=== PATIENT | female | born 1990 | race Caucasian/White ===

== ENCOUNTER 2021-02-16 14:12 | Outpatient (REF) | payer OTHER, SELFPAY | END 2021-02-16 14:13 | disposition home or self-care (01) | LOC: HO.LAB 14:12 | PROVIDERS: Visit Provider Internal Medicine | DX: Z20.822 Contact with and (suspected) exposure to COVID-19 (principal) | CPT/HCPCS: C9803; U0003; U0005 ==

== ENCOUNTER 2025-04-29 21:38 | Inpatient (IN) | payer OTHER, SELFPAY ==
--- OUTSIDE RECORDS SUMMARY | 2025-04-28 15:38 | XMS_ITS | Encounter Summary ---
Author Organization [facility] Address [address] [place] [address] Care Team Providers Care Trade Analyst Name Role Phone Sae Hawley MD Primary Care Provider Reason for Visit * Reason Comments Palpitations Encounter Details Date Type Department Care Team ([facility] st Contact Info) Description 04/28/2025 3:38 PM EDT - 04/29/2025 3:23 AM EDT Emergency [facility] Emergency [address] [place] [address] Terrence Saba MD [address] [facility] [address] [place], [place] [id number] Tremaine Esteban MD [address] [place] [id number] Palpitations (Primary Dx); Chest pain, unspecified type; Pain of upper abdomen Discharge Disposition: Home or Self Care Social History Tobacco Use Types Packs/Day Years Used Date Smoking Tobacco: Former Cigarettes Smokeless Tobacco: Former Alcohol Use Standard Drinks/Week Comments Never 0 (1 standard drink = 0.6 oz pur e alcohol) Comments Unknown Sex and Gender Information Value Date Recorded Sex Assigned at Not on file Legal Sex Female 2:01 AM EST Gender Identity Not on file Sexual Orientation Not on file documented as of this encounter Last Filed Vital Signs Vital Sign Reading Time Taken Comments Blood Pressure 130/67 04/29/2025 1:55 AM EDT Pulse 77 04/29/2025 1:55 AM EDT Temperature 36.8 C (98.2 F) 04/29/2025 1:55 AM EDT Respiratory Rate 18 04/29/2025 1:55 AM EDT Oxygen Saturation 99% 04/29/2025 1:55 AM EDT Inhaled Oxygen Concentration - - Weight 99.8 kg (220 lb) 04/28/2025 1:18 PM EDT Height 157.5 cm (5' 2 ) 04/28/2025 1:18 PM EDT Body Mass Index 40.24 04/28/2025 1:18 PM EDT documented in this encounter Functional Status * Calculated C-SSRS Risk Score (Lifetime/Recent) Answer Date of Assessment Author No Risk Indicated 04/28/2025 1:17 PM EDT Corina Claudio RN * [place] Suicide Severity Rating Scale (Screener/Recent Self-Report) Question Answer Date of Assessment Author 1. Wish to be (Past 1 Month) No 025 1:17 PM EDT Yumiko Claudio RN 2. Non-Specific Active Suici kiarra Thoughts (Past 1 Month) No 04/28/2025 1:17 PM EDT Bryanna Claudio RN 6. Suicidal Behavior (Lifetime) No 1:17 PM EDT Yumiko Claudio RN documented as of this encounter Discharge Instructions * Discharge Instructions* Tremaine Esteban MD - 04/29/2025 2:48 AM EDT 1. You were seen and evaluated in the emergency department today for concern about palpitations, difficulty breathing, chest pain, and abdominal pain. 2. In the emergency department, your evaluation included vital signs, physical exam, EKG, chest x-ray, abdominal CT scan and an ultrasound of your abdomen. 3. Fortunately, there is no evidence of an immediately dangerous life- threatening cause for your symptoms. 4. Specifically, no sign of infection, no sign of any surgical emergency. No evidence of heart attack or heart inflammation. No apparent blood clot/pulmonary embolism. Your chest x-ray does not suggest pneumonia or other infection that needs antibiotics. 5. Many causes of pain can be difficult to fully identify in the emergency department. For this reason it is important to continue to carefully watch and monitor your symptoms at home. 6. It is important to contact your primary care provider and arrange for outpatient follow-up and reevaluation. 7. We are always here in the emergency department to help. Please return at anytime for any new, different, dangerous, life-threatening, symptoms or conditions. Thank you. * Attachments The following attachments cannot be sent through Care Everywhere. * Abdominal Pain (Samoan) * Chest Pain (Samoan) documented in this encounter Medications at Time of Discharge nystatin (MYCOSTATIN) 100,000 unit/gram powder Apply topically 2 (two) times a day. 15 g 02/03/2025 6 no.37/iron/folic acid (PRENATA ORAL) Take by mouth. documented as of this encounter Discharge Disposition Disposition Code Departure Means Destination Comment s Home or Self Care Discharged with balanced and steady gait. Pt advised to return with worsening sx. documented in this encounter Progress Notes * Yumiko Claudio RN - 04/28/2025 1:19 PM EDT C/o palpitations and sob- onset Friday night. Reports abd pain- Feels her organs are swollen . Iwas very bloated- what ever it was there was a lot of gas. States she just had a miscarriage Friday- states she was in her first trimester- reports she still has vaginal bleeding but on and off. * Tremaine Esteban MD - 04/28/2025 1:00 PM EDT Emergency department progress note: Signout received that evening change of shift. Please see emergency department note from my emergency department colleague with presenting details and information. This is a 34-year-old female, brought in by EMS, for what is reported to me is predominantly palpitations, chest tightness, difficulty breathing. Patient had additional abdominal and pelvic complaints including intermittent abdominal pain, some irregular vaginal bleeding and concern for . At time of my evaluation, the patient had had a transvaginal pelvic ultrasound as well as a CT scanof the abdomen and pelvis. The ultrasound revealed a largely normal pelvic ultrasound, with no evidence of ovarian torsion. Nofree fluid was noted within the pelvis. Normal color Doppler both arterial and venous flow to both ovaries. CT scan of the abdomen and pelvis revealed a small hiatal hernia. Fatty liver. Gallbladder spleen pancreas adrenals and kidneys were all unremarkable. No bowel obstruction. No pneumoperitoneum, no pneumatosis. There is a fat-containing umbilical hernia. There is reports of some mild thickening of the urinary bladder. Patient has no urinary symptoms, no urgency, no frequency. No dysuria. I reviewed with the patient the data collected. At this time there does not appear to be a dangerous abdominal pelvic issue, no evidence of a surgical emergency, patient is hCG negative. The urine sample appears to be contaminated as evidenced by a large amount of squamous epithelial cells. However, there is no bacteriuria. Low index of suspicion for an acute cystitis based on urinalysis and absence of any urinary symptoms. At time of my evaluation, the patient's predominant concern is more related to Chest discomfort and shortness of breath. Patient states the symptoms have been constant now for 4 days since Friday. Patient denies any hormone therapy. She denies any history of DVT or PE. She has no leg swelling, no calf tenderness. Patient is PERC negative. EKG is sinus rhythm at 58 bpm. Narrow complex QRS at 84 ms. Normal QTc 435 ms. No ectopy. No dysrhythmia. No A-fib. No A-flutter. No ST elevation noted. Labs today show a negative hCG, negative test. CBC shows a very mild leukocytosis of 11.7. H&H are otherwise normal and reassuring. Comprehensive metabolic panel is unremarkable. Mild hypokalemia with a potassium of 3.1. BNP is normal, troponin is normal, TSH is normal, magnesium is normal. Urinalysis shows greater then 100 squamous epithelial cells consistent with a contaminated sample. There are some elevated white blood cells, red blood cells, but no bacteria. Nitrite negative. 1. You were seen and evaluated in the emergency department today for concern about palpitations, difficulty breathing, chest pain, and abdominal pain. 2. In the emergency department, your evaluation included vital signs, physical exam, EKG, chest x-ray, abdominal CT scan and an ultrasound of your abdomen. 3. Fortunately, there is no evidence of an immediately dangerous life- threatening cause for your symptoms. 4. Specifically, no sign of infection, no sign of any surgical emergency. No evidence of heart attack or heart inflammation. No apparent blood clot/pulmonary embolism. Your chest x-ray does not suggest pneumonia or other infection that needs antibiotics. 5. Many causes of pain can be difficult to fully identify in the emergency department. For this reason it is important to continue to carefully watch and monitor your symptoms at home. 6. It is important to contact your primary care provider and arrange for outpatient follow-up and reevaluation. 7. We are always here in the emergency department to help. Please return at anytime for any new, different, dangerous, life-threatening, symptoms or conditions. Thank you. Tremaine Esteban MD 04/29/25 0028 Tremaine Esteban MD 04/29/25 0703 documented in this encounter Plan of Treatment Not on file documented as of this encounter Procedures Procedure Name Priority Date/Time Associated Diagnosis Comments XR CHEST 2 VIEWS STAT 04/29/2025 1:[address] ABDOMEN PELVIS W CONTRAST STAT 04/28/2025 10:41 PM EDT US PELVIS NON OB COMPLETE W TRANSVAGINAL STAT 04/28/2025 5:59 PM EDT POC , URINE DIAGNOSTIC STAT 04/28/2025 5:28 PM EDT URINALYSIS WITH REFLEX MICROSCOPIC STAT 04/28/2025 5:12 PM EDT URINALYSIS WITH REFLEX MICROSCOPIC STAT 04/28/2025 5:12 PM EDT [place] URINE CULTURE TUBE Routine 04/28/2025 5:07 PM EDT EXTRA TUBES Routine 04/28/2025 5:07 PM EDT TROPONIN I HIGH SENSITIVITY STAT 04/28/2025 4:43 PM EDT THYROID STIMULATING HORMONE WITH REFLEX TO FREE T4 AND FREE T3 STAT 04/28/2025 4:43 PM EDT CBC WITH AUTO DIFFERENTIAL STAT 04/28/2025 4:43 PM EDT CBC AND DIFFERENTIAL STAT 04/28/2025 4:43 PM EDT HCG, SERUM, QUALITATIVE STAT 04/28/2025 4:43 PM EDT B-TYPE NATRIURETIC PEPTIDE STAT 04/28/2025 4:43 PM EDT MAGNESIUM STAT 04/28/2025 4:43 PM EDT COMPREHENSIVE METABOLIC PANEL STAT 04/28/2025 4:43 PM EDT ECG 12-LEAD STAT 04/28/2025 1:29 PM EDT documented in this encounter Results * XR Chest 2 Views (04/29/2025 1:58 AM EDT) Anatomical Region Laterality Modality Body Radiographic Betty ging 04/29/2025 8:07 AM EDT Impressions 04/29/2025 8:07 AM EDT No acute findings. -------- FINAL REPORT -------- Dictated By: Spencer Ricardo Dictated Date: 04/29/2025 08:07 ET Assigned Physician: Spencer Ricardo Reviewed and Electronically Signed By: Spencer Ricardo Signed Date: 04/29/2025 08:07 ET Workstation ID: [id number] Transcribed By: Self Edit Transcribed Date: 04/29/2025 08:07 ET Narrative 04/29/2025 8:07 AM EDT PROCEDURE: PA and lateral radiographs of the chest. HISTORY: pain. COMPARISON: 05/12/2024. FINDINGS: Small endplate osteophytes and spine. Lungs, pleural spaces, pulmonary vasculature, and cardiomediastinal contours are normal. Procedure Note Spencer Ricardo MD - 04/29/2025 PROCEDURE: PA and lateral radiographs of the chest. HISTORY: pain. COMPARISON: 05/12/2024. FINDINGS: Small endplate osteophytes and spine. Lungs, pleural spaces, pulmonaryvasculature, and cardiomediastinal contours are normal. IMPRESSION: No acute findings. -------- FINAL REPORT -------- Dictated By: Spencer Ricardo Dictated Date: 04/29/2025 08:07 ET Assigned Physician: Spencer Ricardo Reviewed and Electronically Signed By: Spencer Ricardo Signed Date: 04/29/2025 08:07 ET Workstation ID: [id number] Transcribed By: Self Edit Transcribed Date: 04/29/2025 08:07 ET us Tremaine Esteban MD IMG XR PROCEDURES Final Result * CT Abdomen Pelvis w Contrast (04/28/2025 10:41 PM EDT) Anatomical Region Laterality Modality Body Computed Tomogra phy 04/28/2025 11:0 4 PM EDT Impressions 04/28/2025 11:04 PM EDT 1. Small hiatal hernia. 2. Fatty infiltration of the liver. 3. Fat containing umbilical hernia. 4. Mild thickening of the urinary bladder wall may be related to cystitis. Correlation with urinalysis is suggested. 5. Bilateral nonspecific subcentimeter inguinal lymph nodes. This document has been electronically signed by: Kris Guevara MD on 04/28/2025 23:04:05 Narrative 04/28/2025 11:04 PM EDT INDICATION: Abdominal pain, acute, no prior medical history CT abdomen and pelvis with contrast Comparison: None provided Findings: Small hiatal hernia. Fatty infiltration of the liver. The gallbladder, spleen, pancreas, adrenals, and kidneys are unremarkable. No bowel obstruction, pneumoperitoneum, or pneumatosis. Fat containing umbilical hernia. Mild thickening of the urinary bladder wall may be related to cystitis. Correlation with urinalysis is suggested. No evidence for acute appendicitis. Bilateral nonspecific subcentimeter inguinal lymph nodes. No acute fracture. Procedure Note Kris Guevara MD - 04/28/2025 INDICATION: Abdominal pain, acute, no prior medical history CT abdomen and pelvis with contrast Comparison: None provided Findings: Small hiatal hernia. Fatty infiltration of the liver. The gallbladder, spleen, pancreas, adrenals, and kidneys are unremarkable. No bowel obstruction, pneumoperitoneum, or pneumatosis. Fat containing umbilical hernia. Mild thickening of the urinary bladder wall may be related to cystitis. Correlation with urinalysis is suggested. No evidence for acute appendicitis. Bilateral nonspecific subcentimeter inguinal lymph nodes. No acute fracture. IMPRESSION: 1. Small hiatal hernia. 2. Fatty infiltration of the liver. 3. Fat containing umbilical hernia. 4. Mild thickening of the urinary bladder wall may be related tocystitis. Correlation with urinalysis is suggested. 5. Bilateral nonspecific subcentimeter inguinal lymph nodes. This document has been electronically signed by: Kris Guevara MD on 04/28/2025 23:04:05 Terrence Saba MD IMG CT PROCEDURES Final Result * US Pelvis Non OB Complete w Transvaginal (04/28/2025 5:59 PM EDT) Anatomical Region Laterality Modality Body, Pelvis Ultrasound 04/28/2025 6:32 PM EDT Impressions 04/28/2025 6:32 PM EDT 1. Normal pelvic ultrasound with Doppler. No evidence of ovarian torsion. This document has been electronically signed by: Janny Walter MD on 04/28/2025 18:32:33 Narrative 04/28/2025 6:32 PM EDT INDICATION: vaginal bleeding US pelvis transabdominal and transvaginal with Doppler Comparison: US/SR - US PEL NON OB COMPLETE W TRANSVAGINAL - 03/22/25 12:02 EDT Findings: Transabdominal scanning performed for overall anatomy. Transvaginal scanning performed for additional detail. Uterus is 7.1 cm length. Normal myometrium. Endometrium 7.0 mm thickness. Right ovary 2.8 x 1.3 x 2.7 cm. Left ovary 3.3 x 1.9 x 2.2 cm. Normal color Doppler with arterial/venous spectral tracing of both ovaries. No free fluid. Procedure Note Janny Walter MD - 04/28/2025 INDICATION: vaginal bleeding US pelvis transabdominal and transvaginal with Doppler Comparison: US/SR - US PEL NON OB COMPLETE W TRANSVAGINAL - 03/22/2512:02 EDT Findings: Transabdominal scanning performed for overall anatomy. Transvaginal scanning performed for additional detail. Uterus is 7.1 cm length. Normal myometrium. Endometrium 7.0 mm thickness. Right ovary 2.8 x 1.3 x 2.7 cm. Left ovary 3.3 x 1.9 x 2.2 cm. Normal color Doppler with arterial/venous spectral tracing of both ovaries. No free fluid. IMPRESSION: 1. Normal pelvic ultrasound with Doppler. No evidence of ovariantorsion. This document has been electronically signed by: Janny Walter MD on 04/28/2025 18:32:33 us Terrence Saba MD IMG US PROCEDURES Final Result * POC , urine manually resulted (04/28/2025 5:28 PM EDT) HCG, Ur POC Negative Negative Urine Urine specimen obtained by clean catch procedure / Unknown 04/28/2025 5:28 PM EDT us Terrence Saba MD POINT OF CARE TEST ENTER/EDIT OR DERABLES Final Result * (ABNORMAL) Urinalysis with reflex microscopic (04/28/2025 5:12 PM EDT) Specific [place] Urine 1.028 1.003 - 1.030 LAB URINALYSIS - AUTOMATED METHOD 04/28/2025 6:32 PM [facility] pH, Urine 6.5 5.0 - 8.0 pH LAB URINALYSIS - AUTOMATED METHOD 04/28/2025 6:32 PM [facility] Leukocytes, Urine Moderate(A) Negative LAB URINALYSIS - AUTOMATED METHOD 04/28/2025 6:32 PM [facility] Nitrite, Urine Negative Negative LAB URINALYSIS - AUTOMATED METHOD 04/28/2025 6:32 PM [facility] Protein, Urine 100(A) <=Trace mg/dL LAB URINALYSIS - AUTOMATED METHOD 04/28/2025 6:32 PM [facility] Glucose, Urine Negative Negative mg/dL LAB URINALYSIS - AUTOMATED METHOD 04/28/2025 6:32 PM [facility] Ketones, Urine >=80(A) Negative mg/dL LAB URINALYSIS - AUTOMATED METHOD 04/28/2025 6:32 PM [facility] Urobilinogen , Urine 1.0 0.2 - 1.0 mg/dL LAB URINALYSIS - AUTOMATED METHOD 04/28/2025 6:32 PM [facility] Bilirubin, Urine Negative Negative LAB URINALYSIS - AUTOMATED METHOD 04/28/2025 6:32 PM [facility] Blood, Urine Moderate(A) Negative LAB URINALYSIS - AUTOMATED METHOD 04/28/2025 6:32 PM [facility] RBC, Urine 20.8(H) 0 - 4 /HPF LAB URINALYSIS - AUTOMATED METHOD 04/28/2025 6:32 PM [facility] WBC, Urine 29.2(H) 0 - 4 /HPF LAB URINALYSIS - AUTOMATED METHOD 04/28/2025 6:32 PM EDT [facility] Squamous Epithelial, Urine >100(H) 0 - 60 /LPF LAB URINALYSIS - AUTOMATED METHOD 04/28/2025 6:32 PM EDT [facility] Non-Squamous Epithelial, Urine Rare Transitional epithelial cells. /LPF LAB URINALYSIS - AUTOMATED METHOD 04/28/2025 6:32 PM EDT [facility] Bacteria, Urine Negative Negative /HPF LAB URINALYSIS - AUTOMATED METHOD 04/28/2025 6:32 PM EDT [facility] Hyaline Casts, Urine 2.0 0 - 3 /LPF LAB URINALYSIS - AUTOMATED METHOD 04/28/2025 6:32 PM EDT [facility] Urine Urine specimen obtained by clean catch procedure / Unknown Non-blood Collection / Unknown 04/28/2025 5:12 PM EDT 04/28/2025 5:28 PM EDT us Terrence Saba MD LAB URINE ORDERABLES Final Resul t Performing Organization Address City/[facility]/ZIP Co de Phone Number [facility] [address] [place] [address], [place] [phone] * [place] urine culture tube (04/28/2025 5:07 PM EDT) Extra Tube Hold for add-ons. 04/28/2025 7:01 PM EDT [facility] Comment:Auto resulted. Urine Urine specimen obtained by clean catch procedure / Unknown 04/28/2025 5:07 PM EDT 04/28/2025 5:30 PM EDT us Terrence Saba MD LAB URINE ORDERABLES Final Resul t Performing Organization Address City/[facility]/ZIP Co de Phone Number [facility] [address] [place] [address], [place] [phone] * (ABNORMAL) CBC auto differential (04/28/2025 4:43 PM EDT) [facility] WBC 11.7(H) 4.8 - 10.8 K/mcL LAB HEMETOLOGY METHOD 04/28/2025 5:43 PM EDT [facility] RBC 4.90(H) 3.80 - 4.80 M/mcL LAB HEMETOLOGY METHOD 04/28/2025 5:43 PM EDT [facility] Hemoglobin 14.9 11.5 - 16.0 g/dL LAB HEMETOLOGY METHOD 04/28/2025 5:43 PM EDT [facility] Hematocrit 44.6 35.0 - 47.0 % LAB HEMETOLOGY [facility]28[facility]25 5[facility] MCV 91.6 79.0 - 98.0 FL LAB HEMETOLOGY METHOD 04/28/2025 5:43 PM EDT [facility] MCH 30.6 27.0 - 32.0 pcg LAB HEMETOLOGY METHOD 04/28/2025 5:43 PM EDT [facility] MCHC 33.4 32.0 - 37.0 g/dL LAB HEMETOLOGY METHOD [facility]/28[facility]2025 5[facility] RDW 12.1 11.0 - 15.0 % LAB HEMETOLOGY METHOD 04/28/2025 5:43 PM EDT [facility] Platelets 314 130 - 400 K/mcL LAB HEMETOLOGY METHOD 04/28[facility]2025 5:[facility] MPV 11.0 7.0 - 11.0 FL LAB HEMETOLOGY METHOD 04/28/2025 5:43 PM EDT [facility] NRBC 0.0 <1.0 % LAB HEMETOLOGY METHOD 04/28/2025 5:43 PM EDT [facility] NRBC Absolute 0.00 <0.10 K/mcL LAB HEMETOLOGY METHOD 04/28/2025 5:43 PM EDT [facility] Neutrophils Relative 65.4 % LAB HEMETOLOGY METHOD 04/28/2025 5:43 PM [facility] Lymphocytes Relative 23.4 % LAB HEMETOLOGY METHOD [facility]/28[facility]2025 5:[facility] Monocytes Relative 10.6 % LAB HEMETOLOGY METHOD 04/28[facility]2025 5:43 [facility] Eosinophils Relative 0.1 % LAB HEMETOLOGY METHOD 04/28/2025 5:43 PM [facility] Basophils Relative 0.2 % LAB HEMETOLOGY METHOD 04/28/2025 5:43 PM [facility] Immature Granulocytes Relative 0.3 % LAB HEMETOLOGY METHOD 04/28/2025 5:43 PM [facility] Neutrophils Absolute 7.66(H) 1.50 - 7.00 K/mcL LAB HEMETOLOGY METHOD 04/28/2025 5:43 PM [facility] Lymphocytes Absolute 2.74 1.00 - 5.00 K/mcL LAB HEMETOLOGY METHOD 04/28/2025 5:43 PM [facility] Monocytes Absolute 1.24(H) 0.20 - 1.00 K/mcL LAB HEMETOLOGY METHOD 04/28/2025 5:43 PM [facility] Eosinophils Absolute 0.01 0.00 - 0.50 K/mcL LAB HEMETOLOGY METHOD 04/28/2025 5:43 PM [facility] Basophils Absolute 0.02 0.00 - 0.20 K/mcL LAB HEMETOLOGY METHOD 04/28/2025 5:43 PM [facility] Immature Granulocytes Absolute 0.04(H) 0.00 - 0.03 K/mcL LAB HEMETOLOGY METHOD 04/28/2025 5:43 PM EDT [facility] Blood Venous blood specimen / Unknown Venipuncture / Unknown 04/28/2025 4:43 PM EDT 04/28/2025 5:32 PM EDT us Terrence Saba MD LAB BLOOD ORDERABLES Final Resul t Performing Organization Address City/[facility]/ZIP Co de Phone Number [facility] [address] [place] [address], [place] [phone] * Magnesium (04/28/2025 4:43 PM EDT) Magnesium 2.1 1.9 - 2.6 mg/dL LAB CHEMISTRY METHOD 04/28/2025 6:16 PM EDT [facility] Blood Venous blood specimen / Unknown Venipuncture / Unknown 04/28/2025 4:43 PM EDT 04/28/2025 5:32 PM EDT us Terrence Saba MD LAB BLOOD ORDERABLES Final Resul t Performing Organization Address [facility]/ZIP Co de Phone Number [facility] [address] [place] [address], [place] [phone] * Thyroid stimulating hormone with reflex to free t4 and free t3 (TSH Reflex) (04/28/2025 4:43 PM EDT) TSH 2.09 0.40 - 4.00 mcIU/mL LAB CHEMISTRY METHOD 04/28/2025 7:01 PM EDT [facility] Blood Venous blood specimen / Unknown Venipuncture / Unknown 04/28/2025 4:43 PM EDT 04/28/2025 5:32 PM EDT us Terrence Saba MD LAB BLOOD ORDERABLES Final Resul t Performing Organization Address City/[facility]/ZIP Co de Phone Number [facility] [address] [place] [address], [place] [phone] * Troponin I High Sensitivity (04/28/2025 4:43 PM EDT) [facility] High Sensitivity Troponin I 6 <=54 ng/L LAB CHEMISTRY METHOD 04/28/2025 6:04 PM EDT [facility] Blood Venous blood specimen / Unknown Venipuncture / Unknown 04/28/2025 4:43 PM EDT 04/28/2025 5:32 PM EDT Narrative [facility] - 04/28/2025 6:04 PM EDT High levels of biotin in samples may falsely decrease hsTroponin values. Use caution when interpreting hsTroponin results in patients taking biotin who exhibit renal impairment (eGFR <60) or in patients taking more than 20 mg/day of biotin. us Terrence Saba MD LAB BLOOD ORDERABLES Final Resul t Performing Organization Address City/[facility]/ZIP Co de Phone Number [facility] [address] [place] [address], [place] [phone] * B-Type Natriuretic Peptide (BNP) (04/28/2025 4:43 PM EDT) [facility] BNP 14 <=100 pcg/mL LAB CHEMISTRY METHOD 04/28/2025 7:18 PM EDT [facility] Blood Venous blood specimen / Unknown Venipuncture / Unknown 04/28/2025 4:43 PM EDT 04/28/2025 5:32 PM EDT us Terrence Saba MD LAB BLOOD ORDERABLES Final Resul t [facility] [address] [place] [address], [place] [phone] * (ABNORMAL) Comprehensive Metabolic Panel (CMP) (04/28/2025 4:43 PM EDT) [facility] Sodium 133 133 - 145 mmol/L LAB CHEMISTRY METHOD 04/28/2025 6:16 PM [facility] Potassium 3.1(L) 3.5 - 5.5 mmol/L LAB CHEMISTRY METHOD 04/28/2025 6:16 PM [facility] Chloride 99 96 - 110 mmol/L LAB CHEMISTRY METHOD 04/28/2025 6:16 PM [facility] CO2 23 21 - 32 mmol/L LAB CHEMISTRY METHOD 04/28/2025 6:16 PM [facility] Anion Gap 11 3 - 11 LAB CHEMISTRY METHOD 04/28/2025 6:16 PM [facility] Glucose 84 70 - 100 mg/dL LAB CHEMISTRY METHOD 04/28/2025 6:16 PM [facility] BUN 11 5 - 25 mg/dL LAB CHEMISTRY METHOD 04/28/2025 6:16 PM [facility] Creatinine 0.76 0.50 - 1.10 mg/dL LAB CHEMISTRY METHOD 04/28/2025 6:16 PM [facility] eGFR 104 >=60 mL/min/1. 73m2 LAB CHEMISTRY METHOD 04/28/2025 6:16 PM [facility] Comment:Calculation based on the Chronic Kidney Disease Epidemiology Collaboration (CKD-EPI) equation refit without adjustment for race. BUN/Creatinine Ratio 14.5 LAB CHEMISTRY METHOD 04/28/2025 6:16 PM [facility] Calcium 9.7 8.5 - 10.5 mg/dL LAB CHEMISTRY METHOD 04/28/2025 6:16 PM [facility] AST (SGOT) 21 10 - 42 unit/L LAB CHEMISTRY METHOD 04/28/2025 6:16 PM [facility] ALT (SGPT) 28 10 - 60 unit/L LAB CHEMISTRY METHOD 04/28/2025 6:16 PM [facility] Alkaline Phosphatase 81 42 - 121 unit/L LAB CHEMISTRY METHOD 04/28/2025 6:16 PM EDT [facility] Total Protein 8.6(H) 6.0 - 8.0 g/dL LAB CHEMISTRY METHOD 04/28/2025 6:16 PM EDT [facility] Albumin 4.8 3.2 - 5.0 g/dL LAB CHEMISTRY METHOD 04/28/2025 6:16 PM EDT [facility] Total Bilirubin 0.8 0.0 - 1.4 mg/dL LAB CHEMISTRY METHOD 04/28/2025 6:16 PM EDT [facility] Blood Venous blood specimen / Unknown Venipuncture / Unknown 04/28/2025 4:43 PM EDT 04/28/2025 5:32 PM EDT us Terrence Saba MD LAB BLOOD ORDERABLES Final Resul t [facility] [address] [place] [address], [place] [phone] * hCG Qualitative (04/28/2025 4:43 PM EDT) [facility] hCG Qual Negative Negative 04/28/2025 6:16 PM EDT [facility] Blood Venous blood specimen / Unknown Venipuncture / Unknown 04/28/2025 4:43 PM EDT 04/28/2025 5:32 PM EDT us Terrence Saba MD LAB BLOOD ORDERABLES Final Resul t [facility] [address] [place] [address], [place] [phone] * ECG 12 lead (04/28/2025 1:29 PM EDT) Ventricular Rate ECG 58 BPM GEMUSE Atrial Rate 58 BPM GEMUSE P-R Interval 156 ms GEMUSE QRS Duration 84 ms GEMUSE Q-T Interval 444 ms GEMUSE QTc 435 ms GEMUSE P Wave [place] 19 degrees GEMUSE R [place] 14 degrees GEMUSE T [place] 19 degrees GEMUSE ECG Interpretation Sinus bradycardia Moderate voltage criteria for LVH, may be normal variant ( R in aVL , Sokolow-Vang ) Borderline ECG When compared with ECG of 12-MAY-2024 00:11, No significant change was found Confirmed by TOM MILIAN ([id number]) on 04/28/2025 5:49:23 PM GEMUSE 04/28/2025 1:29 PM EDT 04/28/2025 5:49 PM EDT us Terrence Saba MD ECG ORDERABLES Final Result GEMUSE documented in this encounter Visit Diagnoses Diagnosis Palpitations- Primary Chest pain, unspecified type Pain of upper abdomen documented in this encounter Administered Medications Inactive Administered Medications - up to 3 most recent administrations Medication Order MAR Action Action Date Dose Rate Site acetaminophen (TYLENOL) tablet 650 mg 650 mg, oral, Once, On Fri04/28/25 at 1605, For 1 dose Given 04/28/2025 4:14 PM EDT 650 mg ibuprofen (ADVIL,MOTRIN) tablet 800 mg 800 mg, oral, Once, On Fri04/29/25 at 0021, For 1 dose, Administer with food or milk to decrease GI upset Given 04/29/2025 12:38 AM EDT 800 mg iopamidoL (ISOVUE-370) 370 mg iodine /mL (76 %) injection 90 mL 90 mL, intravenous, Once in imaging, Starting on Shayna 04/28/25 at 2235, For 1 dose Given 04/28/2025 10:37 PM EDT 90 mL ipratropium-albuteroL (DUONEB) 0.5-2.5 mg/3 mL nebulizer solution 3 mL 3 mL, nebulization, Once, On Fri04/29/25 at 0022, For 1 dose Given 04/29/2025 12:38 AM EDT 3 mL oxyCODONE-acetaminophen (PERCOCET) 5-325 mg per tablet 1 tablet 1 tablet, oral, Once, On Fri04/29/25 at 0021, For 1 dose Given 04/29/2025 12:39 AM EDT 1 tablet sodium chloride 0.9 % flush 10 mL 10 mL, intravenous, Once, On Shayna 04/28/25 at 2236, For 1 dose Given 04/28/2025 10:37 PM EDT 10 mL documented in this encounter Active and Recently Administered Medications Times are shown in EDT. Scheduled Medication Order 04/27/2025 04/28/2025 04/29/2025 acetaminophen (TYLENOL) tablet 650 mg (COMPLETED) 650 mg, oral, Once, On Fri04/28/25 at 1605, For 1 dose 1614 (Given - Provider: Lala Yañez RN) ibuprofen (ADVIL,MOTRIN) tablet 800 mg (COMPLETED) 800 mg, oral, Once, On Fri04/29/25 at 0021, For 1 dose, Administer with food or milk to decrease GI upset 0038 (Given - Provid er: Ade Santiago RN) iopamidoL (ISOVUE-370) 370 mg iodine /mL (76 %) injection 90 mL (COMPLETED) 90 mL, intravenous, Once in imaging, Starting on Shayna 04/28/25 at 2235, For 1 dose 2237 (Given - Provider: Rosmery Nolen) ipratropium-albuteroL (DUONEB) 0.5-2.5 mg/3 mL nebulizer solution 3 mL (COMPLETED) 3 mL, nebulization, Once, On Fri04/29/25 at 0022, For 1 dose 0038 (Given - Provid er: Ade Santiago RN) oxyCODONE-acetaminophen (PERCOCET) 5-325 mg per tablet 1 tablet (COMPLETED) 1 tablet, oral, Once, On Fri04/29/25 at 0021, For 1 dose 0039 (Given - Provid er: Ade Santiago RN) sodium chloride 0.9 % flush 10 mL (COMPLETED) 10 mL, intravenous, Once, On Shayna 04/28/25 at 2236, For 1 dose 2237 (Given - Provider: Rosmery Nolen) documented in this encounter Care Teams Trade Analyst Relationship Specialty Start Date End Date Sae Hawley MD [address] [place] [id number] PCP - General 03/17/23 documented as of this encounter
--- OUTSIDE RECORDS SUMMARY | 2025-04-29 09:51 | XMS_ITS | Encounter Summary ---
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 04/29/2025 7:25 PM EDT [facility] Anion Gap 8 3 - 11 LAB CHEMISTRY METHOD 04/29/2025 7:25 PM [facility] Glucose 103(H) 70 - 100 mg/dL LAB CHEMISTRY METHOD 04/29/2025 7:25 PM [facility] BUN 10 5 - 25 mg/dL LAB CHEMISTRY METHOD 04/29/2025 7:25 PM [facility] Creatinine 0.68 0.50 - 1.10 mg/dL LAB CHEMISTRY METHOD 04/29/2025 7:25 PM [facility] eGFR 116 >=60 mL/min/1. 73m2 LAB CHEMISTRY METHOD 04/29/2025 7:25 PM [facility] Comment:Calculation based on the Chronic Kidney Disease Epidemiology Collaboration (CKD-EPI) equation refit without adjustment for race. BUN/Creatinine Ratio 14.7 LAB CHEMISTRY METHOD 04/29/2025 7:25 PM [facility] Calcium 9.6 8.5 - 10.5 mg/dL LAB CHEMISTRY METHOD 04/29/2025 7:25 PM [facility] AST (SGOT) 24 10 - 42 unit/L LAB CHEMISTRY METHOD 04/29/2025 7:25 PM [facility] ALT (SGPT) 26 10 - 60 unit/L LAB CHEMISTRY METHOD 04/29/2025 7:25 PM [facility] Alkaline Phosphatase 76 42 - 121 unit/L LAB CHEMISTRY METHOD 04/29/2025 7:25 PM [facility] Total Protein 8.0 6.0 - 8.0 g/dL LAB CHEMISTRY METHOD 04/29/2025 7:25 PM [facility] Albumin 4.5 3.2 - 5.0 g/dL LAB CHEMISTRY METHOD 04/29/2025 7:25 PM [facility] Total Bilirubin 0.7 0.0 - 1.4 mg/dL LAB CHEMISTRY METHOD 04/29/2025 7:25 PM [facility] Blood Venous blood specimen / Unknown Venipuncture / Unknown 04/29/2025 6:42 PM EDT 04/29/2025 7:00 PM EDT Kaleb Mason MD LAB BLOOD ORDERABLES Final Resul t Performing Organization Address [facility] de Phone Number [facility] [address] [place] [address], [place] [phone] * ECG 12 lead (04/29/2025 10:36 AM EDT) Ventricular Rate ECG 62 BPM GEMUSE Atrial Rate 62 BPM GEMUSE P-R Interval 134 ms GEMUSE QRS Duration 84 ms GEMUSE Q-T Interval 426 ms GEMUSE QTc 432 ms GEMUSE P Wave [place] 42 degrees GEMUSE R [place] 51 degrees GEMUSE T [place] 47 degrees GEMUSE ECG Interpretation Normal sinus rhythm Normal ECG When compared with ECG of 28-APR-2025 13:29, No significant change was found Confirmed by Rohini BACON JAMES ([id number]) on 04/29/2025 6:33:24 PM GEMUSE 04/29/2025 10:3 6 AM EDT 04/29/2025 6:33 PM EDT Kaleb Mason MD ECG ORDERABLES Final Result Performing Organization Address [facility] de Phone Number GEMUSE * (ABNORMAL) CBC auto differential (04/29/2025 10:32 AM EDT) Pathologist [facility] WBC 10.8 4.8 - 10.8 K/[facility] LAB HEMETOLOGY METHOD 04/29/2025 10:48 AM EDT [facility] RBC 5.20(H) 3.80 - 4.80 M/[facility] LAB HEMETOLOGY METHOD 04/29/2025 10:48 AM EDT [facility] Hemoglobin 16.0 11.5 - 16.0 g/dL LAB HEMETOLOGY METHOD 04/29/2025 10:48 AM [facility] Hematocrit 45.7 35.0 - 47.0 % LAB HEMETOLOGY METHOD 04/29/2025 10:48 AM [facility] MCV 88.1 79.0 - 98.0 FL LAB HEMETOLOGY METHOD 04/29/2025 10:48 AM [facility] MCH 30.8 27.0 - 32.0 pcg LAB HEMETOLOGY METHOD 04/29/2025 10:48 AM [facility] MCHC 35.0 32.0 - 37.0 g/dL LAB HEMETOLOGY METHOD 04/29/2025 10:48 AM [facility] RDW 12.1 11.0 - 15.0 % LAB HEMETOLOGY METHOD 04/29/2025 10:48 AM [facility] Platelets 352 130 - 400 K/mcL LAB HEMETOLOGY METHOD 04/29/2025 10:48 AM [facility] MPV 10.6 7.0 - 11.0 FL LAB HEMETOLOGY METHOD 04/29/2025 10:48 AM [facility] NRBC 0.0 <1.0 % LAB HEMETOLOGY METHOD 04/29/2025 10:48 AM [facility] NRBC Absolute 0.00 <0.10 K/mcL LAB HEMETOLOGY METHOD 04/29/2025 10:48 AM [facility] Neutrophils Relative 57.5 % LAB HEMETOLOGY METHOD 04/29/2025 10:48 AM [facility] Lymphocytes Relative 32.2 % LAB HEMETOLOGY METHOD 04/29/2025 10:48 AM [facility] Monocytes Relative 9.6 % LAB HEMETOLOGY METHOD 04/29/2025 10:48 AM [facility] Eosinophils Relative 0.2 % LAB HEMETOLOGY METHOD 04/29/2025 10:48 AM EDT [facility] Basophils Relative 0.2 % LAB HEMETOLOGY METHOD 04/29/2025 10:48 AM EDT [facility] Immature Granulocytes Relative 0.3 % LAB HEMETOLOGY METHOD 04/29/2025 10:48 AM EDT [facility] Neutrophils Absolute 6.22 1.50 - 7.00 K/mcL LAB HEMETOLOGY METHOD 04/29/2025 10:48 AM EDT [facility] Lymphocytes Absolute 3.48 1.00 - 5.00 K/mcL LAB HEMETOLOGY METHOD 04/29/2025 10:48 AM EDT [facility] Monocytes Absolute 1.04(H) 0.20 - 1.00 K/mcL LAB HEMETOLOGY METHOD 04/29/2025 10:48 AM EDT [facility] Eosinophils Absolute 0.02 0.00 - 0.50 K/mcL LAB HEMETOLOGY METHOD 04/29/2025 10:48 AM EDT [facility] Basophils Absolute 0.02 0.00 - 0.20 K/mcL LAB HEMETOLOGY METHOD 04/29/2025 10:48 AM EDT [facility] Immature Granulocytes Absolute 0.03 0.00 - 0.03 K/mcL LAB HEMETOLOGY METHOD 04/29/2025 10:48 AM EDT [facility] Blood Venous blood specimen / Unknown Venipuncture / Unknown 04/29/2025 10:32 AM EDT 04/29/2025 10:44 AM EDT us Kaleb Mason MD LAB BLOOD ORDERABLES Final Resul t [facility] [address] [place] [address], * Methadone, urine (04/29/2025 10:32 AM EDT) Methadone Screen, Urine Negative Negative LAB CHEMISTRY METHOD 04/29/2025 11:10 AM EDT [facility] Comment: Assay cutoff 300 ng/mL Semi-quantitative assay for screening purposes only. Unconfirmed screening result should not be used for non-medical purposes. *ALTERNATE METHOD CONFIRMATION DONE UPON REQUEST ONLY* Urine Urine specimen obtained by clean catch procedure / Unknown Non-blood Collection / Unknown 04/29/2025 10:32 AM EDT 04/29/2025 10:43 AM EDT Kaleb Mason MD LAB URINE ORDERABLES Final Resul t Performing Organization Address [facility] de Phone Number [facility] [address] [place] [address], [place] [phone] * Phencyclidine, urine (04/29/2025 10:32 AM EDT) [facility] PCP Scrn, Ur Negative Negative LAB CHEMISTRY METHOD 04/29/2025 11:10 AM EDT [facility] Comment: Assay cutoff 25 ng/mL Semi-quantitative assay for screening purposes only. Unconfirmed screening result should not be used for non-medical purposes. *ALTERNATE METHOD CONFIRMATION DONE UPON REQUEST ONLY* Urine Urine specimen obtained by clean catch procedure / Unknown Non-blood Collection / Unknown 04/29/2025 10:32 AM EDT 04/29/2025 10:43 AM EDT Kaleb Mason MD LAB URINE ORDERABLES Final Resul t Performing Organization Address [facility]/ZIP Co de Phone Number [facility] [address] [place] [address], [place] [phone] * Buprenorphine screen, urine (04/29/2025 10:32 AM EDT) [facility] Buprenorphine Screen Urine Negative Negative LAB CHEMISTRY METHOD 04/29/2025 11:10 AM EDT [facility] Urine Urine specimen obtained by clean catch procedure / Unknown Non-blood Collection / Unknown 04/29/2025 10:32 AM EDT 04/29/2025 10:43 AM EDT Narrative [facility] - 04/29/2025 11:10 AM EDT Assay cutoff 5 ng/mL Semi-quantitative assay for screening purposes only. Unconfirmed screening result should not be used for non-medical purposes. *ALTERNATE METHOD CONFIRMATION DONE UPON REQUEST ONLY* us Kaleb Mason MD LAB URINE ORDERABLES Final Resul t [facility] [address] [place] [address], * (ABNORMAL) Drug abuse screen 8a panel, urine (04/29/2025 10:32 AM EDT) Amphetamine Screen, Ur Negative Negative LAB CHEMISTRY METHOD 11:22 AM [facility] Comment:Certain OTC medicati ons containing ephedrine, phenylephrine, pseudoephedrine and phenylpropanolamine can cause false positive results. Barbiturate Screen, Ur Negative Negative LAB CHEMISTRY METHOD 11:22 AM [facility] Benzodiazepine Screen, Ur Negative Negative LAB CHEMISTRY METHOD 11:22 AM [facility] Cocaine Screen, Ur Negative Negative LAB CHEMISTRY METHOD 11:22 AM [facility] Opiate Screen, Ur Negative Negative LAB CHEMISTRY METHOD 11:22 AM [facility] Cannabinoid (THC) Screen, Ur Positive(A ) Negative LAB CHEMISTRY METHOD 11:22 AM [facility] Comment:Specimens from patie nts taking pantoprazole sodium (Protonix) have been shown to produce false positive results. Oxycodone Screen, Ur Positive(A ) Negative LAB CHEMISTRY METHOD 5 11:22 AM [facility] Fentanyl, Ur Negative Negative LAB CHEMISTRY METHOD 11:22 AM EDT [facility] Urine Urine specimen obtained by clean catch procedure / Unknown Non-blood Collection / Unknown 04/29/2025 10:32 AM EDT 04/29/2025 10:43 AM EDT Narrative [facility] - 04/29/2025 11:22 AM EDT Assay cutoffs: Amphetamines 1000 ng/mL Barbiturates 200 ng/mL Benzodiazepines 200 ng/mL Cocaine 300 ng/mL Fentanyl 1 ng/mL Opiates 300 ng/mL Oxycodone 100 ng/mL THC 50 ng/mL Semi-quantitative assay for screening purposes only. Unconfirmed screening result should not be used for non-medical purposes. *ALTERNATE METHOD CONFIRMATION DONE UPON REQUEST ONLY* Kaleb Mason MD LAB URINE ORDERABLES Final Resul t Performing Organization Address City/[facility]/ZIP Co de Phone Number [facility] [address] [place] [address], [place] [phone] * (ABNORMAL) Salicylate level (04/29/2025 10:32 AM EDT) Salicylate Level <1.7(L) 2.0 - 29.0 mg/dL LAB CHEMISTRY METHOD 04/29/2025 11:36 AM EDT [facility] Blood Venous blood specimen / Unknown Venipuncture / Unknown 04/29/2025 10:32 AM EDT 04/29/2025 10:44 AM EDT us Kaleb Mason MD LAB BLOOD ORDERABLES Final Resul t [facility] [address] [place] [address], [place] [phone] * (ABNORMAL) Acetaminophen level (04/29/2025 10:32 AM EDT) Acetaminophen Level <2.0(L) 10.0 - 30.0 mcg/mL LAB CHEMISTRY METHOD 04/29/2025 11:42 AM EDT [facility] Blood Venous blood specimen / Unknown Venipuncture / Unknown 04/29/2025 10:32 AM EDT 04/29/2025 10:44 AM EDT us Kaleb Mason MD LAB BLOOD ORDERABLES Final Resul t Performing Organization Address [facility]/ZIP Co de Phone Number [facility] [address] [place] [address], [place] [phone] * Ethanol (04/29/2025 10:32 AM EDT) Ethanol Level <3 0 - 10 mg/dL LAB CHEMISTRY METHOD 04/29/2025 11:36 AM EDT [facility] Blood Venous blood specimen / Unknown Venipuncture / Unknown 04/29/2025 10:32 AM EDT 04/29/2025 10:44 AM EDT us Kaleb Mason MD LAB BLOOD ORDERABLES Final Resul t Performing Organization Address [facility] de Phone Number [facility] [address] [place] [address], [place] [phone] * (ABNORMAL) Comprehensive metabolic panel (04/29/2025 10:32 AM EDT) Sodium 129(L) 133 - 145 mmol/L LAB CHEMISTRY METHOD 04/29/2025 11:36 AM EDT [facility] Potassium 3.1(L) 3.5 - 5.5 mmol/L LAB CHEMISTRY METHOD 04/29/2025 11:36 AM EDT [facility] Chloride 96 96 - 110 mmol/L LAB CHEMISTRY METHOD 04/29/2025 11:36 AM EDT [facility] CO2 23 21 - 32 mmol/L LAB [facility]STR[facility] An[facility] Gap 10 3 - 11 LAB CHEMISTRY METHOD 04/29/2025 11:36 AM [facility] Glucose 95 70 - 100 mg/dL LAB CHEMISTRY METHOD 04/29/2025 11:36 AM [facility] BUN 13 5 - 25 mg/dL LAB CHEMISTRY METHOD 04/29/2025 11:36 AM [facility] Creatinine 0.93 0.50 - 1.10 mg/dL LAB CHEMISTRY METHOD 04/29/2025 11:36 AM [facility] eGFR 82 >=60 mL/min/1. 73m2 LAB CHEMISTRY METHOD 04/29/2025 11:36 AM [facility] Comment:Calculation based on the Chronic Kidney Disease Epidemiology Collaboration (CKD-EPI) equation refit without adjustment for race. BUN/Creatinine Ratio 14.0 LAB CHEMISTRY METHOD 04/29/2025 11:36 AM [facility] Calcium 10.4 8.5 - 10.5 mg/dL LAB CHEMISTRY METHOD 04/29/2025 11:36 AM [facility] AST (SGOT) 27 10 - 42 unit/L LAB CHEMISTRY METHOD 04/29/2025 11:36 AM [facility] ALT (SGPT) 28 10 - 60 unit/L LAB CHEMISTRY METHOD 04/29/2025 11:36 AM [facility] Alkaline Phosphatase 90 42 - 121 unit/L LAB CHEMISTRY METHOD 04/29/2025 11:36 AM [facility] Total Protein 9.4(H) 6.0 - 8.0 g/dL LAB CHEMISTRY METHOD 04/29/2025 11:36 AM [facility] Albumin 5.4(H) 3.2 - 5.0 g/dL LAB CHEMISTRY METHOD 04/29/2025 11:36 AM [facility] Total Bilirubin 1.0 0.0 - 1.4 mg/dL LAB CHEMISTRY METHOD 04/29/2025 11:36 AM EDT [facility] Blood Venous blood specimen / Unknown Venipuncture / Unknown 04/29/2025 10:32 AM EDT 04/29/2025 10:44 AM EDT us Kaleb Mason MD LAB BLOOD ORDERABLES Final Resul t [facility] [address] [place] [address], documented in this encounter Visit Diagnoses Diagnosis Suicidal ideation- Primary documented in this encounter Administered Medications Active Administered Medications - up to 3 most recent administrations Medication Order MAR Action Action Date Dose Rate Site LORazepam (ATIVAN) tablet 0.5 mg 0.5 mg, oral, 2 times daily PRN, anxiety, sleep, ED use only, Starting on Fri04/29/25 at 1618 OLANZapine (ZyPREXA) tablet 5 mg 5 mg, oral, Nightly, First dose on Fri04/29/25 at 2100 Given 04/29/2025 8:20 PM EDT 5 mg Inactive Administered Medications - up to 3 most recent administrations Medication Order MAR Action Action Date Dose Rate Site ondansetron ODT (ZOFRAN-ODT) disintegrating tablet 4 mg 4 mg, oral, Once, On Fri04/29/25 at 1320, For 1 dose Given 04/29/2025 1:30 PM EDT 4 mg potassium chloride (KLOR-CON M20) CR tablet 20 mEq 20 mEq, oral, Once, On Fri04/29/25 at 1746, For 1 dose, Tablet may be swallowed whole (do not crush/chew/suck on) OR broken in half and each half swallowed separately OR dissolved (whole tablet) in ~4 ounces of water (allow ~2 minutes to dissolve, stir well and administer immediately). Given 04/29/2025 5:07 PM EDT 20 mEq potassium chloride (KLOR-CON M20) CR tablet 40 mEq 40 mEq, oral, Once, On Fri04/29/25 at 1546, For 1 dose, Tablet may be swallowed whole (do not crush/chew/suck on) OR broken in half and each half swallowed separately OR dissolved (whole tablet) in ~4 ounces of water (allow ~2 minutes to dissolve, stir well and administer immediately). Given 04/29/2025 4:01 PM EDT 40 mEq documented in this encounter Active and Recently Administered Medications Times are shown in EDT. Scheduled Medication Order 04/27/2025 04/28/2025 04/29/2025 OLANZapine (ZyPREXA) tablet 5 mg 5 mg, oral, Nightly, First dose on Fri04/29/25 at 2100 2020 (Given - Provid er: Zainab Najera RN) ondansetron ODT (ZOFRAN-ODT) disintegrating tablet 4 mg (COMPLETED) 4 mg, oral, Once, On Fri04/29/25 at 1320, For 1 dose 1330 (Given - Provid er: Patti Rob RN) potassium chloride (KLOR-CON M20) CR tablet 20 mEq (COMPLETED)(Linked Group 1) 20 mEq, oral, Once, On Fri04/29/25 at 1746, For 1 dose, Tablet may be swallowed whole (do not crush/chew/suck on) OR broken in half and each half swallowed separately OR dissolved (whole tablet) in ~4 ounces of water (allow ~2 minutes to dissolve, stir well and administer immediately). 1707 (Given - Provid er: Lala Yañez RN) potassium chloride (KLOR-CON M20) CR tablet 40 mEq (COMPLETED)(Linked Group 1) 40 mEq, oral, Once, On Fri04/29/25 at 1546, For 1 dose, Tablet may be swallowed whole (do not crush/chew/suck on) OR broken in half and each half swallowed separately OR dissolved (whole tablet) in ~4 ounces of water (allow ~2 minutes to dissolve, stir well and administer immediately). 1601 (Given - Provid er: Lala Yañez RN) PRN Medication Order 04/27/2025 04/28/2025 04/29/2025 LORazepam (ATIVAN) tablet 0.5 mg 0.5 mg, oral, 2 times daily PRN, anxiety, sleep, ED use only, Starting on Fri04/29/25 at 1618 Linked Groups Order Group 1: potassium chloride (KLOR-CON M20) CR tablet 40 mEq (COMPLETED)Jump to med 40 mEq, oral, Once, On Fri04/29/25 at 1546, For 1 dose, Tablet may be swallowed whole (do not crush/chew/suck on) OR broken in half and each half swallowed separately OR dissolved (whole tablet) in ~4 ounces of water (allow ~2 minutes to dissolve, stir well and administer immediately). Followed by potassium chloride (KLOR-CON M20) CR tablet 20 mEq (COMPLETED)Jump to med 20 mEq, oral, Once, On Fri04/29/25 at 1746, For 1 dose, Tablet may be swallowed whole (do not crush/chew/suck on) OR broken in half and each half swallowed separately OR dissolved (whole tablet) in ~4 ounces of water (allow ~2 minutes to dissolve, stir well and administer immediately). documented in this encounter Orders Medications Ordered That Bello ht Not Have Been Administered Count Last Ordered Date First Ordered Date LORazepam (ATIVAN) tablet 0.5 mg 1 04/29/20 25 Diet Count Last Ordered Date First Orde red Date ADULT DIET 1 04/29/2025 Consult Count Last Ordered Date First Orde red Date IP CONSULT TO CONTINUOUS MINING MACHINE LODE MINER 1 04/29/2025 Precaution Count Last Ordered Date First Orde red Date SUICIDE PRECAUTIONS 1 04/29/2025 Privilege Level Count Last Ordered Date First O rdered Date PATIENT BELT SANDER STONE 1 04/29/2025 documented in this encounter Care Teams Clinical Interviewer Relationship Specialty Start Date End Date Sae Hawley MD [address] [place] [address] PCP - General 03/17/23 documented as of this encounter
--- OUTSIDE RECORDS SUMMARY | 2025-04-29 21:45 | XMS_ITS | Encounter Summary ---
Author Organization [facility] Address [address] [place] [address] Care Team Providers Care Stand In Name Role Phone Amy Avalos DO Primary Care Pro vider [facility], Pcp Primary Care Provider James Neal MD Primary Care Provider UnavailAndrey Carney MD Primary Care Provider Sil Otoole MD Primary Care Provider [phone] Sae Hawley MD Primary Care Provider Reason for Visit * Reason Onset Date Comments immunizations 10/14/2016 Encounter Details Date Type Department Care Team Description 10/14/2016 Telephone Adult Medicine [address] [address] Amy Avalos DO immunizations Social History Tobacco Use Types Packs/Day Years Used Date Smoking Tobacco: Former Comments:use to smoke 1 cig per month Alcohol Use Standard Drinks/Week Comments Yes 0 (1 standard drink = 0.6 oz pur e alcohol) socially Sex Assigned at Date Recorded Not on file documented as of this encounter Miscellaneous Notes * Telephone Encounter - Honey Schafer M.A. - 10/14/2016 10:44 AM EDT Pt is booked to have a ppd placed on 10/16/16. Please order ppd. * Telephone Encounter - Honey Schafer M.A. - 10/14/2016 9:45 AM EDT Message left for pt to return my call Honey (POD) [phone] Pt would have to be able to come back for the read. We usually do it on . * Telephone Encounter - Elvira Dozier - 10/14/2016 9:39 AM EDT Payor: [employer]ICA[employer] / Plan: [facility] MEDICAID HMO $0 [place] / Product Type: HMO [id number] Patient is requesting a list of their previous immunizations YES Does the patient have an immunization form to be completed? NO Is the patient requesting immunizations to be administered? YES If yes, which immunizations are needed? testing for tuberculosis for work, patient is also requesting a copy of her physical, she could only come in on a Friday to get this done. Is the patient traveling to a foreign country: NO If traveling: Which country: Date patient is leaving: documented in this encounter Plan of Treatment Not on file documented as of this encounter Visit Diagnoses Not on filedocumented in this encounter Care Teams Stand In Relationship Specialty Start Date End Date Amy Avalos DO PCP - General Internal Medicine 06/06/15 09/15/19 [facility], Pcp PCP - General Internal Medicine 09/16/19 02/07/21 James Rea MD PCP - General Internal Medicine 02/08/21 10/31/21 Andrey Orlando MD PCP - General Family Practice 11/01/21 03/11/23 Sil Pena MD [address] [place] [id number] PCP - General Internal Medicine 03/12/23 03/16/23 Sae Hawley MD [address] [place] [id number] PCP - General Internal Medicine 03/17/23 documented as of this encounter
--- OUTSIDE RECORDS SUMMARY | 2025-04-29 21:45 | XMS_ITS | Clinical Summary ---
Author Organization [facility] Address [address] [place] [address] Phone Care Team Providers Care Manager Registration Name Role Phone Sae Hawley MD Primary Care Provider Allergies No known active allergies Medications nystatin (MYCOSTATIN) 100,000 unit/gram powder Apply topically 2 (two) times a day. 15 g 5 02/04/20 26 Active no.37/iron/foli c acid (PRENATA ORAL) Take by mouth. Activ e cephalexin (KEFLEX) 500 mg capsule Take 1 capsule (500 mg total) by mouth 4 (four) times a day for 10 days. 40 each 5 04/01/20 25 bacitracin (bacitracin zinc) 500 unit/gram ointment Apply 1 Application topically 2 (two) times a day for 10 days. 120 g 5 04/01/20 25 Active Problems No known active problems Encounters Date Type Department Care Team Description 04/29/2025 9:51 AM EDT - 04/29/2025 9:24 PM EDT Emergency [facility] Emergency [address] [place] [phone] Kaleb Mason MD Gordon, Ruth, MD Suicidal ideation (Primary Dx) Discharge Disposition: Another Health Care Institution Not Defined 04/28/2025 3:38 PM EDT - 04/29/2025 3:23 AM EDT Emergency [facility] Emergency [address] [place] [address] Terrence Saba MD Dunbar, Kevin F, MD Palpitations (Primary Dx); Chest pain, unspecified type; Pain of upper abdomen Discharge Disposition: Home or Self Care 03/22/2025 9:22 AM EDT - 03/22/2025 2:16 PM EDT [facility] Emergency [address] [place] [phone] Olimpia Silverio, Abscess (Primary Dx) Discharge Disposition: Home or Self Care 02/23/2025 Telephone Adult Medicine [address] [phone] Sae Hawley MD 02/22/2025 2:00 PM EDT Office Visit Adult [address] [phone] Sae Hawley MD History of chlamydia infection (Primary Dx); Cellulitis, unspecified cellulitis site 02/21/[address] [phone] Sae Hawley MD 02/19/2025 6:45 AM EDT - 02/19/2025 8:08 AM EDT [facility] Emergency [address] [place] [phone] Cellulitis of left lower extremity (Primary Dx) Discharge Disposition: Home or Self Care 02/03/2025 11:34 PM EDT - 02/03/2025 11:52 PM EDT [facility] Emergency [address] [place] [phone] Rash (Primary Dx); Yeast dermatitis Discharge Disposition: Home or Self Care 02/01/2025 8:28 PM EDT - 02/01/2025 8:39 PM EDT [facility] [address] [place] [phone] Henry Phan MD Cellulitis of toe of right foot (Primary Dx); Fungal dermatitis Discharge Disposition: Home or Self Care 01/30/2025 5:17 AM EDT - 01/30/2025 8:24 AM EDT Emergency [facility] Emergency [address] [place] [address] Otilia Toussaint MD Trichomonas infection (Primary Dx); Candidiasis of perineum; Unprotected sexual intercourse Discharge Disposition: Home or Self Care from Last 3 Months Immunizations Immunization Administration Dates Next Due PPD Test 10/16/2016 Pfizer (ages 12 & older) Bivalent, COVID-19 11/04 Tdap Tetanus diptheria acell ular pertussis (Boostrix; Adacel) 7yo and older 07/05/2016 Surgical History Surgery Date Site/Laterality Comments OTHER SURGICAL HISTORY PROCEDURE: DENIES PREVIOUS SURGERY Medical History Medical History Date Comments 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:H istory of viral meningitis; COMMENT: 2012 /residual effects mentioned Family history of malignant melanoma of skin 10/03/2015 DX:Family history of maligna nt melanoma of skin; COMMENT: Family history malignant melanoma skin mother Meningitis 2011 bacterial Family History Medical History Relation Name Comments Melanoma Mother Relation Name Status Comments Mother Social History Tobacco Use Types Packs/Day Years Used Date Smoking Tobacco: Former Cigarettes Smokeless Tobacco: Former Alcohol Use Standard Drinks/Week Comments Never 0 (1 standard drink = 0.6 oz pur e alcohol) Comments Unknown Sex and Gender Information Value Date Recorded Sex Assigned at Not on file Legal Sex Female 2:01 AM EST Gender Identity Not on file Sexual Orientation Not on file Obstetrics History Last Filed Vital Signs Vital Sign Reading [...] Mass Index 40.24 04/29/2025 3:55 PM EDT Plan of Treatment Health Maintenance Due Date Last Done Comments Hepatitis B Vaccines (1 of 3 - 19+ 3-dose series) 11/18/2007 Cholesterol Screening (Lipid Panel) 06/09/2022 06/06/2015 Social Influencers of Health Screening 06/09/2022 Depression Screening 07/07/2024 HPV Vaccines (2 - 3-dose SCD M series) 03/02/2025 02/02/2025 COVID-19 Vaccine (4 - 2024-2 6 season) 2025 11/19/2022, 02/17/2022, 01/27/2022 Cervical Cancer Screening: HPV 07/31/2025 07/31/2020 DTaP,Tdap,and Td Vaccines (4 - Td or Tdap) 03/16/2033 03/16/2023, 07/05/2016, 04/24/2011 RSV Immunization Adult Patients (1 - 1-dose 75+ series) 11/18/2063 Influenza Vaccine Completed 02/02/2025, 05/14/2022, 06/21/2011 HIV Screening Completed 02/22/2025 Hepatitis C Screening Completed 02/22/2025 HIB Vaccines Aged Out No longer eligi ble based on patient's age to complete this topic Hepatitis A Vaccines Aged Out No long er eligible based on patient's age to complete this topic IPV Vaccines Aged Out No longer eligi ble based on patient's age to complete this topic MMR Vaccines Aged Out No longer eligi ble based on patient's age to complete this topic Meningococcal ACWY Vaccine Aged Out N o longer eligible based on patient's age to complete this topic Meningococcal B Vaccine Aged Out No l onger eligible based on patient's age to complete this topic Pneumococcal Vaccine: Pediatrics (0 to 5 Years) and At-Risk Patients (6 to 49 Years) Aged Out No longer eligible b ased on patient's age to complete this topic RSV Immunization Patients Under 20 months Aged Out No longer eligible b ased on patient's age to complete this topic Varicella Vaccines Aged Out No longer eligible based on patient's age to complete this topic Procedures Procedure Name Priority Date/Time Associated Diagnosis Comments COMPREHENSIVE METABOLIC PANEL STAT 04/29/2025 6:42 PM EDT ECG 12-LEAD STAT 04/29/2025 10:36 AM EDT CBC WITH AUTO DIFFERENTIAL STAT 04/29/2025 10:32 AM EDT METHADONE SCREEN, URINE STAT 04/29/20 10:32 AM EDT PHENCYCLIDINE, URINE STAT 04/29/2025 10:32 AM EDT BUPRENORPHINE SCREEN, URINE STAT 04/29/2025 10:32 AM EDT DRUG ABUSE SCREEN 8A PANEL, URINE STAT 04/29/2025 10:32 AM EDT SALICYLATE LEVEL STAT 04/29/2025 10:3 2 AM EDT ACETAMINOPHEN LEVEL STAT 04/29/2025 1 0:32 AM EDT ETHANOL STAT 04/29/2025 10:32 AM EDT COMPREHENSIVE METABOLIC PANEL STAT 04/29/2025 10:32 AM EDT CBC AND DIFFERENTIAL STAT 04/29/2025 10:32 AM EDT XR CHEST 2 VIEWS STAT 04/29/2025 1:[address] ABDOMEN PELVIS W CONTRAST STAT 04/28/2025 10:41 PM EDT US PELVIS NON OB COMPLETE W TRANSVAGINAL STAT 04/28/2025 5:59 PM EDT POC , URINE DIAGNOSTIC STAT 04/28/2025 5:28 PM EDT URINALYSIS WITH REFLEX MICROSCOPIC STAT 04/28/2025 5:12 PM EDT URINALYSIS WITH REFLEX MICROSCOPIC STAT 04/28/2025 5:12 PM EDT ST[facility] URINE CULTURE TUBE Routine 10/23/20 25 5:07 PM EDT EXTRA TUBES Routine 04/28/2025 5:07 PM EDT CBC WITH AUTO DIFFERENTIAL STAT 04/28/2025 4:43 PM EDT CBC AND DIFFERENTIAL STAT 04/28/2025 4:43 PM EDT MAGNESIUM STAT 04/28/2025 4:43 PM EDT THYROID STIMULATING HORMONE WITH REFLEX TO FREE T4 AND FREE T3 STAT 04/28/2025 4:43 PM EDT TROPONIN I HIGH SENSITIVITY STAT 04/28/2025 4:43 PM EDT B-TYPE NATRIURETIC PEPTIDE STAT 04/28/2025 4:43 PM EDT COMPREHENSIVE METABOLIC PANEL STAT 04/28/2025 4:43 PM EDT HCG, SERUM, QUALITATIVE STAT 04/28/20 4:43 PM EDT ECG 12-LEAD STAT 04/28/2025 1:29 PM EDT URINALYSIS WITH REFLEX MICROSCOPIC AND CULTURE STAT 03/22/2025 1:22 PM EDT URINALYSIS WITH REFLEX MICROSCOPIC AND CULTURE STAT 03/22/2025 1:22 PM EDT US PELVIS NON OB COMPLETE W TRANSVAGINAL STAT 03/22/2025 12:26 PM EDT XR ABDOMEN 1 VIEW STAT 03/22/2025 11: 11 AM EDT CBC WITH AUTO DIFFERENTIAL STAT 03/22/2025 10:55 AM EDT BASIC METABOLIC PANEL STAT 03/22/2025 10:55 AM EDT CBC AND DIFFERENTIAL STAT 03/22/2025 10:55 AM EDT HCG, SERUM, QUALITATIVE STAT 03/22/20 10:02 AM EDT EXTERNAL ULTRASOUND REPORT 03/22/2025 EXTERNAL XRAY REPORT 03/22/2025 TREPONEMA PALLIDUM ANTIBODY WITH REFLEX TO RPR AND PARTICLE AGGLUTINATION Routine 02/22/2025 3:14 PM EDT History of chlamydia infection HIV 1, 2 ANTIBODY, P24 ANTIGEN WITH REFLEX TO DIFFERENTIATION Routine 02/22/2025 3:14 PM EDT History of chlamydia infection HEPATITIS PANEL, ACUTE WITH REFLEX TO CONFIRMATION Routine 02/22/2025 3:14 PM EDT History of chlamydia infection HCG, QUANTITATIVE Routine 02/22/2025 3:1 4 PM EDT History of chlamydia infection CHLAMYDIA TRACHOMATIS AND NEISSERIA GONORRHOEAE PCR Routine 02/22/2025 3:14 PM EDT History of chlamydia infection CHLAMYDIA TRACHOMATIS AND NEISSERIA GONORRHOEAE PCR STAT 01/30/2025 8:05 AM EDT POC , URINE DIAGNOSTIC STAT 01/30/2025 6:57 AM EDT WET PREP, GENITAL STAT 01/30/2025 6:2 8 AM EDT [facility] URINE CULTURE TUBE STAT 01/31/20 6:00 AM EDT URINALYSIS WITH REFLEX MICROSCOPIC AND CULTURE STAT 01/30/2025 6:00 AM EDT URINALYSIS WITH REFLEX MICROSCOPIC AND CULTURE STAT 01/30/2025 6:00 AM EDT CULTURE URINE STAT 01/30/2025 6:00 AM EDT HM HPV Routine 07/31/2020 LIPID PANEL Routine 06/06/2015 from Last 3 Months or Most Recently Relevant to Health Maintenance Results * (ABNORMAL) Comprehensive metabolic panel (04/29/2025 6:42 PM EDT) Only the most recent of3 resultswithin the time period is included. Sodium 133 133 - 145 mmol/L LAB CHEMISTRY METHOD 04/29/2025 7:25 PM [facility] Potassium 3.5 3.5 - 5.5 mmol/L LAB CHEMISTRY METHOD 04/29/2025 7:25 PM [facility] Chloride 99 96 - 110 mmol/L LAB CHEMISTRY METHOD 04/29/2025 7:25 PM [facility] CO2 26 21 - 32 mmol/L LAB CHEMISTRY METHOD 04/29/2025 7:25 PM [facility] Anion Gap 8 3 - 11 LAB CHEMISTRY METHOD 04/29/2025 7:25 PM [facility] Glucose 103(H) 70 - 100 mg/dL LAB CHEMISTRY METHOD 04/29/2025 7:25 PM [facility] BUN 10 5 - 25 mg/dL LAB CHEMISTRY METHOD 04/29/2025 7:25 PM [facility] Creatinine 0.68 0.50 - 1.10 mg/dL LAB CHEMISTRY METHOD 04/29/2025 7:25 PM [facility] eGFR 116 >=60 mL/min/1. 73m2 LAB CHEMISTRY METHOD 04/29/2025 7:25 PM [facility] Comment:Calculation based on the Chronic Kidney Disease Epidemiology Collaboration (CKD-EPI) equation refit without adjustment for race. BUN/Creatinine Ratio 14.7 LAB CHEMISTRY METHOD 04/29/2025 7:25 PM [facility] Calcium 9.6 8.5 - 10.5 mg/dL LAB CHEMISTRY METHOD 04/29/2025 7:25 PM [facility] AST (SGOT) 24 10 - 42 unit/L LAB CHEMISTRY METHOD 04/29/2025 7:25 PM EDT [facility] ALT (SGPT) 26 10 - 60 unit/L LAB CHEMISTRY METHOD 04/29/2025 7:25 PM EDT [facility] Alkaline Phosphatase 76 42 - 121 unit/L LAB CHEMISTRY METHOD 04/29/2025 7:25 PM EDT [facility] Total Protein 8.0 6.0 - 8.0 g/dL LAB CHEMISTRY METHOD 04/29/2025 7:25 PM EDT [facility] Albumin 4.5 3.2 - 5.0 g/dL LAB CHEMISTRY METHOD 04/29/2025 7:25 PM EDT [facility] Total Bilirubin 0.7 0.0 - 1.4 mg/dL LAB CHEMISTRY METHOD 04/29/2025 7:25 PM EDT [facility] Blood Venous blood specimen / Unknown Venipuncture / Unknown 04/29/2025 6:42 PM EDT 04/29/2025 7:00 PM EDT us Kaleb Mason MD LAB BLOOD ORDERABLES Final Resul t [facility] [address] [place] [address], * ECG 12 lead (04/29/2025 10:36 AM EDT) Only the most recent of2 resultswithin the time period is included. Ventricular Rate ECG 62 BPM GEMUSE Atrial Rate 62 BPM GEMUSE P-R Interval 134 ms GEMUSE QRS Duration 84 ms GEMUSE Q-T Interval 426 ms GEMUSE QTc 432 ms GEMUSE P Wave Bishop 42 degrees GEMUSE R Bishop 51 degrees GEMUSE T Bishop 47 degrees GEMUSE ECG Interpretation Normal sinus rhythm Normal ECG When compared with ECG of 28-APR-2025 13:29, No significant change was found Confirmed by Rohini BACON JAMES ([id number]) on 04/29/2025 6:33:24 PM GEMUSE 04/29/2025 10:3 6 AM EDT 04/29/2025 6:33 PM EDT us Kaleb Mason MD ECG ORDERABLES Final Result GEMUSE * (ABNORMAL) Drug abuse screen 8a panel, urine (04/29/2025 10:32 AM EDT) Amphetamine Screen, Ur Negative Negative LAB CHEMISTRY METHOD 11:22 AM [facility] Comment:Certain OTC medicati ons containing ephedrine, phenylephrine, pseudoephedrine and phenylpropanolamine can cause false positive results. Barbiturate Screen, Ur Negative Negative LAB CHEMISTRY METHOD 11:22 AM [facility] Benzodiazepine Screen, Ur Negative Negative LAB CHEMISTRY METHOD 11:22 AM [facility] Cocaine Screen, Ur Negative Negative LAB CHEMISTRY METHOD 11:22 AM [facility] Opiate Screen, Ur Negative Negative LAB CHEMISTRY METHOD 11:22 AM [facility] Cannabinoid (THC) Screen, Ur Positive(A ) Negative LAB CHEMISTRY METHOD 11:22 AM [facility] Comment:Specimens from patie nts taking pantoprazole sodium (Protonix) have been shown to produce false positive results. Oxycodone Screen, Ur Positive(A ) Negative LAB CHEMISTRY METHOD 11:22 AM [facility] Fentanyl, Ur Negative Negative LAB CHEMISTRY METHOD 11:22 AM [facility] Urine Urine specimen obtained by clean catch procedure / Unknown Non-blood Collection / Unknown 04/29/2025 10:32 AM EDT 04/29/2025 10:43 AM EDT [facility] - 04/29/2025 11:22 AM EDT Assay [...] ORDERABLES Final Resul t Performing Organization Address [facility]/ZIP Co de Phone Number [facility] [address] [place] [address], * Buprenorphine screen, urine (04/29/2025 10:32 AM EDT) Buprenorphine Screen Urine Negative Negative LAB CHEMISTRY METHOD 04/29/2025 11:10 AM EDT [facility] Urine Urine specimen obtained by clean catch procedure / Unknown Non-blood Collection / Unknown 04/29/2025 10:32 AM EDT 04/29/2025 10:43 AM EDT [facility] - 04/29/2025 11:10 AM EDT Assay cutoff 5 ng/mL Semi-quantitative assay for screening purposes only. Unconfirmed screening result should not be used for non-medical purposes. *ALTERNATE METHOD CONFIRMATION DONE UPON REQUEST ONLY* Kaleb Mason MD LAB URINE ORDERABLES Final Resul t Performing Organization Address [facility]/ZIP Co de Phone Number [facility] [address] [place] [address], * Methadone, urine (04/29/2025 10:32 AM EDT) Methadone Screen, Urine Negative Negative LAB CHEMISTRY METHOD 04/29/2025 11:10 AM EDT [facility] Comment: Assay cutoff 300 ng/mL Semi-quantitative assay for screening purposes only. Unconfirmed screening result should not be used for non-medical purposes. *ALTERNATE METHOD CONFIRMATION DONE UPON REQUEST ONLY* Urine Urine specimen obtained by clean catch procedure / Unknown Non-blood Collection / Unknown 04/29/2025 10:32 AM EDT 04/29/2025 10:43 AM EDT Kaleb Mason MD LAB URINE ORDERABLES Final Resul t [facility] [address] [place] [address], * (ABNORMAL) CBC auto differential (04/29/2025 10:32 AM EDT) Only the most recent of3 resultswithin the time period is included. WBC 10.8 4.8 - 10.8 K/mcL LAB HEMETOLOGY METHOD 04/29/2025 10:48 AM [facility] RBC 5.20(H) 3.80 - 4.80 M/mcL LAB HEMETOLOGY METHOD 04/29/2025 10:48 AM [facility] Hemoglobin 16.0 11.5 - 16.0 g/dL LAB HEMETOLOGY METHOD 04/29/2025 10:48 AM [facility] Hematocrit 45.7 35.0 - 47.0 % LAB HEMETOLOGY METHOD 04/29/2025 10:48 AM T [facility] MCV 88.1 79.0 - 98.0 FL LAB HEMETOLOGY METHOD 04/29/2025 10:48 AM [facility] MCH 30.8 27.0 - 32.0 pcg LAB HEMETOLOGY METHOD 04/29/2025 10:48 AM [facility] MCHC 35.0 32.0 - 37.0 g/dL LAB HEMETOLOGY METHOD 04/29/2025 10:48 AM [facility] RDW 12.1 11.0 - 15.0 % LAB HEMETOLOGY METHOD 04/29/2025 10:48 AM [facility] Platelets 352 130 - 400 K/mcL LAB HEMETOLOGY METHOD 04/29/2025 10:48 AM [facility] MPV 10.6 7.0 - 11.0 FL LAB HEMETOLOGY METHOD 04/29/2025 10:48 AM [facility] NRBC 0.0 <1.0 % LAB HEMETOLOGY METHOD 04/29/2025 10:48 AM [facility] NRBC Absolute 0.00 <0.10 K/mcL LAB HEMETOLOGY METHOD 04/29/2025 10:48 AM [facility] Neutrophils Relative 57.5 % LAB HEMETOLOGY METHOD 04/29/2025 10:48 AM [facility] Lymphocytes Relative 32.2 % LAB HEMETOLOGY METHOD 04/29/2025 10:48 AM [facility] Monocytes Relative 9.6 % LAB HEMETOLOGY METHOD 04/29/2025 10:48 AM [facility] Eosinophils Relative 0.2 % LAB HEMETOLOGY METHOD 04/29/2025 10:48 AM [facility] Basophils Relative 0.2 % LAB HEMETOLOGY METHOD 04/29/2025 10:48 AM [facility] Immature Granulocytes Relative 0.3 % LAB HEMETOLOGY METHOD 04/29/2025 10:48 AM [facility] Neutrophils Absolute 6.22 1.50 - 7.00 K/mcL LAB HEMETOLOGY METHOD 04/29/2025 10:48 AM [facility] Lymphocytes Absolute 3.48 1.00 - 5.00 K/mcL LAB HEMETOLOGY METHOD 04/29/2025 10:48 AM [facility] Monocytes Absolute 1.04(H) 0.20 - 1.00 K/mcL LAB HEMETOLOGY METHOD 04/29/2025 10:48 AM EDT [facility] Eosinophils Absolute 0.02 0.00 - 0.50 K/mcL LAB HEMETOLOGY METHOD 04/29/2025 10:48 AM EDT [facility] Basophils Absolute 0.02 0.00 - 0.20 K/mcL LAB HEMETOLOGY METHOD 04/29/2025 10:48 AM EDT [facility] Immature Granulocytes Absolute 0.03 0.00 - 0.03 K/mcL LAB HEMETOLOGY METHOD 04/29/2025 10:48 AM EDT [facility] Blood Venous blood specimen / Unknown Venipuncture / Unknown 04/29/2025 10:32 AM EDT 04/29/2025 10:44 AM EDT us Kaleb Mason MD LAB BLOOD ORDERABLES Final Resul t Performing Organization Address City/[facility]/ZIP Co de Phone Number [facility] [address] [place] [address], * Phencyclidine, urine (04/29/2025 10:32 AM EDT) PCP Scrn, Ur Negative Negative LAB CHEMISTRY METHOD 04/29/2025 11:10 AM EDT [facility] Comment: Assay cutoff 25 ng/mL Semi-quantitative assay for screening purposes only. Unconfirmed screening result should not be used for non-medical purposes. *ALTERNATE METHOD CONFIRMATION DONE UPON REQUEST ONLY* Urine Urine specimen obtained by clean catch procedure / Unknown Non-blood Collection / Unknown 04/29/2025 10:32 AM EDT 04/29/2025 10:43 AM EDT us Kaleb Mason MD LAB URINE ORDERABLES Final Resul t Performing Organization Address City/[facility]/ZIP Co de Phone Number [facility] [address] [place] [address], [place] [phone] * Ethanol (04/29/2025 10:32 AM EDT) Ethanol Level <3 0 - 10 mg/dL LAB CHEMISTRY METHOD 04/29/2025 11:36 AM EDT [facility] Blood Venous blood specimen / Unknown Venipuncture / Unknown 04/29/2025 10:32 AM EDT 04/29/2025 10:44 AM EDT us Kaleb Mason MD LAB BLOOD ORDERABLES Final Resul t Performing Organization Address City/[facility]/ZIP Co de Phone Number [facility] [address] [place] [address], [place] [phone] * (ABNORMAL) Acetaminophen level (04/29/2025 10:32 AM EDT) Acetaminophen Level <2.0(L) 10.0 - 30.0 mcg/mL LAB CHEMISTRY METHOD 04/29/2025 11:42 AM EDT [facility] Blood Venous blood specimen / Unknown Venipuncture / Unknown 04/29/2025 10:32 AM EDT 04/29/2025 10:44 AM EDT us Kaleb Mason MD LAB BLOOD ORDERABLES Final Resul t Performing Organization Address City/[facility]/ZIP Co de Phone Number [facility] [address] [place] [address], [place] [phone] * (ABNORMAL) Salicylate level (04/29/2025 10:32 AM EDT) Salicylate Level <1.7(L) 2.0 - 29.0 mg/dL LAB CHEMISTRY METHOD 04/29/2025 11:36 AM EDT [facility] Blood Venous blood specimen / Unknown Venipuncture / Unknown 04/29/2025 10:32 AM EDT 04/29/2025 10:44 AM EDT us Kaleb Mason MD LAB BLOOD ORDERABLES Final Resul t [facility] [address] [place] [address], [place] [phone] * XR Chest 2 Views (04/29/2025 1:58 AM EDT) Anatomical Region Laterality Modality Body Radiographic Betty ging 04/29/2025 8:07 AM EDT Impressions 04/29/2025 8:07 AM EDT No acute findings. -------- FINAL REPORT -------- Dictated By: Spencer Ricardo Dictated Date: 04/29/2025 08:07 ET Assigned Physician: Spencer Ricardo Reviewed and Electronically Signed By: Spencer Ricardo Signed Date: 04/29/2025 08:07 ET Workstation ID: [id number] Transcribed By: Self Edit Transcribed Date: 04/29/2025 [...] Signed Date: 04/29/2025 08:07 ET Workstation ID: [id number] Transcribed By: Self Edit Transcribed Date: 04/29/2025 08:07 ET Tremaine Esteban MD IMG XR PROCEDURES Final [...] Complete w Transvaginal (04/28/2025 5:59 PM EDT) Only the most recent of2 resultswithin the time period is included. Anatomical Region Laterality Modality Body, Pelvis Ultrasound [...] urine manually resulted (04/28/2025 5:28 PM EDT) Only the most recent of2 resultswithin the time period is included. Pathologist [facility] HCG, Ur POC Negative Negative Urine Urine specimen obtained by clean catch procedure / Unknown 04/28/2025 5:28 PM EDT Result [facility] Terrence Saba MD POINT OF CARE TEST ENTER/EDIT OR DERABLES Final Result * (ABNORMAL) Urinalysis with reflex microscopic (04/28/2025 5:12 PM EDT) [facility] [place] Urine 1.028 1.003 - 1.030 LAB URINALYSIS - AUTOMATED METHOD 04/28/2025 6:32 PM [facility] pH, Urine 6.5 5.0 - 8.0 pH LAB URINALYSIS - AUTOMATED METHOD 04/28/2025 6:32 PM [facility] Leukocytes, Urine Moderate(A) Negative LAB URINALYSIS - AUTOMATED METHOD 04/28/2025 6:32 PM [facility] Nitrite, Urine Negative Negative LAB URINALYSIS - AUTOMATED METHOD 04/28/2025 6:32 PM [facility] Protein, Urine 100(A) <=Trace mg/dL LAB URINALYSIS - AUTOMATED METHOD 04/28/2025 6:32 PM [facility] Glucose, Urine Negative Negative mg/dL LAB URINALYSIS - AUTOMATED METHOD 04/28/2025 6:32 PM [facility] Ketones, Urine >=80(A) Negative mg/dL LAB URINALYSIS - AUTOMATED METHOD 04/28/2025 6:32 PM EDT [facility] Urobilinogen , Urine 1.0 0.2 - 1.0 mg/dL LAB URINALYSIS - AUTOMATED METHOD 04/28/2025 6:32 PM EDT [facility] Bilirubin, Urine Negative Negative LAB URINALYSIS - AUTOMATED METHOD 04/28/2025 6:32 PM [facility] Blood, Urine Moderate(A) Negative LAB URINALYSIS - AUTOMATED METHOD 04/28/2025 6:32 PM T [facility] RBC, Urine 20.8(H) 0 - 4 /HPF LAB URINALYSIS - AUTOMATED METHOD 04/28/2025 6:32 PM T [facility] WBC, Urine 29.2(H) 0 - 4 /HPF LAB URINALYSIS - AUTOMATED METHOD 04/28/2025 6:32 PM [facility] Squamous Epithelial, Urine >100(H) 0 - 60 /LPF LAB URINALYSIS - AUTOMATED METHOD 04/28/2025 6:32 PM EDT [facility] Non-Squamous Epithelial, Urine Rare Transitional epithelial cells. /LPF LAB URINALYSIS - AUTOMATED METHOD 04/28/2025 6:32 PM [facility] Bacteria, Urine Negative Negative /HPF LAB URINALYSIS - AUTOMATED METHOD 04/28/2025 6:32 PM [facility] Hyaline Casts, Urine 2.0 0 - 3 /LPF LAB URINALYSIS - AUTOMATED METHOD 04/28/2025 6:32 PM [facility] Urine Urine specimen obtained by clean catch procedure / Unknown Non-blood Collection / Unknown 04/28/2025 5:12 PM EDT 04/28/2025 5:28 PM EDT us Terrence Saba MD LAB URINE ORDERABLES Final Resul t [facility] [address] [place] [address], [place] [phone] * [place] urine culture tube (04/28/2025 5:07 PM EDT) Only the most recent of2 resultswithin the time period is included. [facility] Extra Tube Hold for add-ons. 04/28/2025 7:01 PM EDT [facility] Comment:Auto resulted. Urine Urine specimen obtained by clean catch procedure / Unknown 04/28/2025 5:07 PM EDT 04/28/2025 5:30 PM EDT us Terrence Saba MD LAB URINE ORDERABLES Final Resul t Performing Organization Address [facility] Co de Phone Number [facility] [address] [place] [address], [place] [phone] * Troponin I High Sensitivity (04/28/2025 4:43 PM EDT) [facility] High Sensitivity Troponin I 6 <=54 ng/L LAB CHEMISTRY METHOD 04/28/2025 6:04 PM EDT [facility] Blood Venous blood specimen / Unknown Venipuncture / Unknown 04/28/2025 4:43 PM EDT 04/28/2025 5:32 PM EDT Narrative [facility] - 04/28/2025 6:04 PM EDT High levels of biotin in samples may falsely decrease hsTroponin values. Use caution when interpreting hsTroponin results in patients taking biotin who exhibit renal impairment (eGFR <60) or in patients taking more than 20 mg/day of biotin. us Terrence Saba MD LAB BLOOD ORDERABLES Final Resul t Performing Organization Address City/[facility]/ZIP Co de Phone Number [facility] [address] [place] [address], [place] [phone] * Thyroid stimulating hormone with reflex to free t4 and free t3 (TSH Reflex) (04/28/2025 4:43 PM EDT) [facility] TSH 2.09 0.40 - 4.00 mcIU/mL LAB CHEMISTRY METHOD 04/28/2025 7:01 PM EDT [facility] Blood Venous blood specimen / Unknown Venipuncture / Unknown 04/28/2025 4:43 PM EDT 04/28/2025 5:32 PM EDT us Terrence Saba MD LAB BLOOD ORDERABLES Final Resul t Performing Organization Address City/[facility]/ZIP Co de Phone Number [facility] [address] [place] [address], [place] [phone] * hCG Qualitative (04/28/2025 4:43 PM EDT) Only the most recent of2 resultswithin the time period is included. [facility] hCG Qual Negative Negative 04/28/2025 6:16 PM EDT [facility] Blood Venous blood specimen / Unknown Venipuncture / Unknown 04/28/2025 4:43 PM EDT 04/28/2025 5:32 PM EDT us Terrence Saba MD LAB BLOOD ORDERABLES Final Resul t Performing Organization Address [facility] Co de Phone Number [facility] [address] [place] [address], [place] [phone] * B-Type Natriuretic Peptide (BNP) (04/28/2025 4:43 PM EDT) [facility] BNP 14 <=100 pcg/mL LAB CHEMISTRY METHOD 04/28/2025 7:18 PM EDT [facility] Blood Venous blood specimen / Unknown Venipuncture / Unknown 04/28/2025 4:43 PM EDT 04/28/2025 5:32 PM EDT us Terrence Saba MD LAB BLOOD ORDERABLES Final Resul t [facility] [address] [place] [address], [place] [phone] * Magnesium (04/28/2025 4:43 PM EDT) [facility] Magnesium 2.1 1.9 - 2.6 mg/dL LAB CHEMISTRY METHOD 04/28/2025 6:16 PM EDT [facility] Blood Venous blood specimen / Unknown Venipuncture / Unknown 04/28/2025 4:43 PM EDT 04/28/2025 5:32 PM EDT us Terrence Saba MD LAB BLOOD ORDERABLES Final Resul t [facility] [address] [place] [address], [place] [phone] * Urinalysis with reflex microscopic and culture (03/22/2025 1:22 PM EDT) Only the most recent of2 resultswithin the time period is included. [facility] Specific [place] Urine 1.005 1.003 - 1.030 LAB URINALYSIS - AUTOMATED METHOD 03/22/2025 2:57 PM EDT [facility] pH, Urine 7.5 5.0 - 8.0 pH LAB URINALYSIS - AUTOMATED METHOD [facility] Leukocytes, Urine Negative Negative LAB URINALYSIS - AUTOMATED METHOD 03/22/2025 2:57 PM EDT [facility] Nitrite, Urine Negative Negative LAB URINALYSIS - AUTOMATED METHOD 03/22/2025 2:57 PM EDT [facility] Protein, Urine Negative <=Trace mg/dL LAB URINALYSIS - AUTOMATED METHOD 03/22/2025 2:57 PM EDT [facility] Glucose, Urine Negative Negative mg/dL LAB URINALYSIS - AUTOMATED METHOD 03/22/2025 2:57 PM EDT [facility] Ketones, Urine Negative Negative mg/dL LAB URINALYSIS - AUTOMATED METHOD 03/22/2025 2:57 PM EDT [facility] Urobilinogen, Urine 0.2 0.2 - 1.0 mg/dL LAB URINALYSIS - AUTOMATED METHOD 03/22/2025 2:57 PM EDT [facility] Bilirubin, Urine Negative Negative LAB URINALYSIS - AUTOMATED METHOD 03/22/2025 2:57 PM EDT [facility] Blood, Urine Negative Negative LAB URINALYSIS - AUTOMATED METHOD 03/22/2025 2:57 PM EDT [facility] Urine Urine specimen obtained by clean catch procedure / Unknown Non-blood Collection / Unknown 03/22/2025 1:22 PM EDT 03/22/2025 2:57 PM EDT Shannan SALAZAR LAB URINE ORDERABLES Final R esult [facility] [address] [place] [address], [place] [phone] * XR Abdomen 1 View (03/22/2025 11:11 AM EDT) Anatomical Region Laterality Modality Body Radiographic Betty ging 03/22/2025 11:3 9 AM EDT Impressions 03/22/2025 11:40 AM EDT No acute findings. -------- FINAL REPORT -------- Dictated By: Spencer Ricardo Dictated Date: 03/22/2025 11:39 ET Assigned Physician: Spencer Ricardo Reviewed and Electronically Signed By: Spencer Ricardo Signed Date: 03/22/2025 11:40 ET Workstation ID: [id number] Transcribed By: Self Edit Transcribed Date: 03/22/2025 11:39 ET Narrative 03/22/2025 11:40 AM EDT PROCEDURE: Abdominal radiographs. HISTORY: Abdominal pain, acute, nonlocalized. COMPARISON: None. FINDINGS: 2 views of the abdomen and pelvis. Visible portions of the lung bases are normal. Nonobstructive bowel gas pattern. No pathologic calcification or abnormal gas collection. Procedure Note Spencer Ricardo MD - 03/22/2025 PROCEDURE: Abdominal radiographs. HISTORY: Abdominal pain, acute, nonlocalized. COMPARISON: None. FINDINGS: 2 views of the abdomen and pelvis. Visible portions of the lung bases are normal. Nonobstructive bowel gas pattern. No pathologic calcification or abnormalgas collection. IMPRESSION: No acute findings. -------- FINAL REPORT -------- Dictated By: Spencer Ricardo Dictated Date: 03/22/2025 11:39 ET Assigned Physician: Spencer Ricardo Reviewed and Electronically Signed By: Spencer Ricardo Signed Date: 03/22/2025 11:40 ET Workstation ID: [id number] Transcribed By: Self Edit Transcribed Date: 03/22/2025 11:39 ET Shannan SALAZAR IMG XR PROCEDURES Final Resu lt * Basic metabolic panel (03/22/2025 10:55 AM EDT) Sodium 139 133 - 145 mmol/L LAB CHEMISTRY METHOD 03/22/2025 11:40 AM [facility] Potassium 3.9 3.5 - 5.5 mmol/L LAB CHEMISTRY METHOD 03/22/2025 11:40 AM [facility] Chloride 105 96 - 110 mmol/L LAB CHEMISTRY METHOD 03/22/2025 11:40 AM [facility] CO2 31 21 - 32 mmol/L LAB CHEMISTRY METHOD 03/22/2025 11:40 AM [facility] Anion Gap 3 3 - 11 LAB CHEMISTRY METHOD 03/22/2025 11:40 AM [facility] Glucose 75 70 - 100 mg/dL LAB CHEMISTRY METHOD 03/22/2025 11:40 AM [facility] BUN 9 5 - 25 mg/dL LAB CHEMISTRY METHOD 03/22/2025 11:40 AM EDT [facility] Creatinine 0.70 0.50 - 1.10 mg/dL LAB CHEMISTRY METHOD 03/22/2025 11:40 AM EDT [facility] eGFR 115 >=60 mL/min/1. 73m2 LAB CHEMISTRY METHOD 03/22/2025 11:40 AM EDT [facility] Comment:Calculation based on the Chronic Kidney Disease Epidemiology Collaboration (CKD-EPI) equation refit without adjustment for race. BUN/Creatinine Ratio 12.9 LAB CHEMISTRY METHOD 03/22/2025 11:40 AM EDT [facility] Calcium 9.7 8.5 - 10.5 mg/dL LAB CHEMISTRY METHOD 03/22/2025 11:40 AM EDT [facility] Blood Venous blood specimen / Unknown Venipuncture / Unknown 03/22/2025 10:55 AM EDT 03/22/2025 11:17 AM EDT us Janet SALAZAR LAB BLOOD ORDERABLES Fin al Result [facility] [address] [place] [address], * External Xray Report (03/22/2025) Anatomical Region Laterality Modality Radiographic Betty ging us Provider [facility] XR PROCEDURES Final Result * External Ultrasound Report (03/22/2025) Anatomical Region Laterality Modality Ultrasound us Provider [facility] US PROCEDURES Final Result * HIV 1,2 antibody, p24 antigen with reflex to differentiation (02/22/2025 3:14 PM EDT) HIV Combo AB/AG Negative Negative LAB CHEMISTRY METHOD 02/22/2025 8:27 PM EDT [facility] Blood Venous blood specimen / Unknown Venipuncture / Unknown 02/22/2025 3:14 PM EDT 02/22/2025 3:14 PM EDT Narrative [facility] - 02/22/2025 8:27 PM EDT This assay is a 4th generation assay allowing for earlier detection of HIV infection by detecting the presence of the HIV-1 p24 antigen as well as the traditional antibodies to HIV type 1 (including group O) and type 2. Use of a 4th generation assay is the current CDC recommendation for HIV screening. us Sae Hawley MD LAB BLOOD ORDERABLES F inal Result Performing Organization Address City/[facility]/ZIP Co de Phone Number [facility] [address] [place] [address], [place] [phone] * Treponema pallidum antibody with reflex to RPR and particle agglutination (02/22/2025 3:14 PM EDT) Pathologist [facility] T. Pallidum Antibodies Negative Negative LAB CHEMISTRY METHOD 02/22/2025 7:58 PM EDT [facility] Blood Venous blood specimen / Unknown Venipuncture / Unknown 02/22/2025 3:14 PM EDT 02/22/2025 3:14 PM EDT us Sae Hawley MD LAB BLOOD ORDERABLES F inal Result Performing Organization Address City/[facility]/ZIP Co de Phone Number [facility] [address] [place] [address], [place] [phone] * Hepatitis panel, acute with reflex to confirmation (02/22/2025 3:14 PM EDT) Pathologist [facility] Hepatitis B Surface Ag Negative Negative LAB CHEMISTRY METHOD 02/22/2025 9:20 PM EDT [facility] Hepatitis A Antibody IgM Negative Negative LAB CHEMISTRY METHOD 02/22/2025 9:20 PM EDT [facility] Hep B Core IgM Negative Negative LAB CHEMISTRY METHOD 02/22/2025 9:20 PM EDT [facility] Hepatitis C Antibody Negative Negative LAB CHEMISTRY METHOD 02/22/2025 9:20 PM EDT [facility] Blood Venous blood specimen / Unknown Venipuncture / Unknown 02/22/2025 3:14 PM EDT 02/22/2025 3:14 PM EDT Sae Hawley MD LAB BLOOD ORDERABLES F inal Result [facility] [address] [place] [address], * Chlamydia trachomatis and Neisseria gonorrhoeae molecular study (02/22/2025 3:14 PM EDT) Only the most recent of2 resultswithin the time period is included. Pathologist [facility] Neisseria gonorrhoeae PCR Negative Negative LAB MOLECULAR DIAGNOSTICS METHOD 02/23/2025 9:42 AM EDT [facility] Chlamydia trachomatis PCR Negative Negative LAB MOLECULAR DIAGNOSTICS METHOD 02/23/2025 9:42 AM EDT [facility] Urine Urine specimen from urethra / Unknown Non-blood Collection / Unknown 02/22/2025 3:14 PM EDT 02/22/2025 3:14 PM EDT Sae Hawley MD LAB MICROBIOLOGY - GEN ERAL ORDERABLES Final Result [facility] [address] [place] [address], [place] [phone] * HCG, quantitative (02/22/2025 3:14 PM EDT) Pathologist [facility] hCG Quant <1 mIU/mL LAB CHEMISTRY METHOD 02/22/2025 7:31 PM EDT [facility] Blood Venous blood specimen / Unknown Venipuncture / Unknown 02/22/2025 3:14 PM EDT 02/22/2025 3:14 PM EDT Narrative [facility] - 02/22/2025 7:31 PM EDT Quantitative HCG Reference Ranges Time after Conception MIU/ML 0.2-1 Week 5-50 1-2 Weeks 50-500 2-3 Weeks 100-5,000 3-4 Weeks 500-10,000 4-5 Weeks 1,000-50,000 5-6 Weeks 10,000-100,000 6-8 Weeks 15,000-200,000 2-3 Months 10,000-100,000 2nd Trimester 1,000-94,000 3rd Trimester 2,500-90,000 Non- Females 1-3 Sae Hawley MD LAB BLOOD ORDERABLES F inal Result [facility] [address] [place] [address], [place] [phone] * (ABNORMAL) Wet prep, genital (01/30/2025 6:28 AM EDT) Clue Cells, Wet Prep Negative Negative 01/30/2025 6:59 AM EDT [facility] Yeast, Wet Prep Negative Negative 01/30/2025 6:59 AM EDT [facility] Trichomonas, Wet Prep Positive(A) Negative 01/30/2025 6:59 AM EDT [facility] Swab Vaginal structure / Unknown Non-blood Collection / Unknown 01/30/2025 6:28 AM EDT 01/30/2025 6:29 AM EDT Otilia Toussaint MD LAB MICROBIOLOGY - GENERAL ORD ERABLES Final Result [facility] [address] [place] [address], [place] [phone] * Culture urine (01/30/2025 6:00 AM EDT) [facility] Culture, Urine <10,000 CFU/mL gram negative bacilli, insignificant count, no further workup 01/31/2025 10:32 AM EDT [facility] Urine Urine specimen obtained by clean catch procedure / Unknown Non-blood Collection / Unknown 01/30/2025 6:00 AM EDT 01/30/2025 6:27 AM EDT Otilia Toussaint MD LAB MICROBIOLOGY - GENERAL ORD ERABLES Final Result [facility] [address] [place] [address], * Cervical Cancer Screening: HPV (07/31/2020) [facility] Cervical Cancer Screening: HPV abstracted,no interpretation Historical Provider HEALTH MAINTENANCE Final Result * Lipid panel (06/06/2015) [facility] LDL/HDL Ratio 3 0 - 4 Triglycerides 114 0 - 150 mg/dL Cholesterol 152 0 - 200 mg/dL HDL 48 >=40 mg/dL LDL Cholesterol 81 0 - 100 mg/dL Blood Venous blood specimen / Unknown Historical Provider LAB BLOOD ORDERABLES Emma l Result from Last 3 Months or Most Recently Relevant to Health Maintenance Insurance [facility] Care Teams Manager Registration Relationship Specialty Start Date End Date Sae Hawley MD [address] [place] [address] PCP - General 03/17/23
--- OUTSIDE RECORDS SUMMARY | 2025-04-29 21:45 | XMS_ITS | Encounter Summary ---
Author Organization [facility] Address [address] [place] [address] Care Team Providers Care Usability Strategist Name Role Phone James Rea MD Primary Care Provider [facility] Andrey Tucker MD Primary Care Provider Sil Otoole MD Primary Care Provider [phone] Sae Hawley MD Primary Care Provider Encounter Details Date Type Department Care Team Description 05/09/2021 Telephone Adult Medicine [address] [address] James Rea MD Social History Tobacco Use Types Packs/Day Years Used Date Smoking Tobacco: Former Comments:use to smoke 1 cig per month Alcohol Use Standard Drinks/Week Comments Yes 0 (1 standard drink = 0.6 oz pur e alcohol) socially Sex Assigned at Date Recorded Not on file documented as of this encounter Plan of Treatment Not on file documented as of this encounter Visit Diagnoses Not on filedocumented in this encounter Care Teams Usability Strategist Relationship Specialty Start Date End Date James Rea MD PCP - General Internal Medicine 02/08/21 10/31/21 Andrey Orlando MD PCP - General Family Practice 11/01/21 03/11/23 Sil Pena MD [address] [place] [address] [id number] PCP - General Internal Medicine 03/12/23 03/16/23 Sae Hawley MD [address] [place] [address] [id number] PCP - General Internal Medicine 03/17/23 documented as of this encounter
--- OUTSIDE RECORDS SUMMARY | 2025-04-29 21:45 | XMS_ITS | Encounter Summary ---
Author Organization [facility] Address [address] [place] [address] Care Team Providers Care Crew Caller Name Role Phone Sae Hawley MD Primary Care Provider Encounter Details Date Type Department Care Team Description 06/03/2023 Orders Only Medical Records [address] [place] [address] Abstract, Provider Social History Tobacco Use Types Packs/Day Years [...] Procedure Name Priority Date/Time Associated Diagnosis Comments OUTSIDE PAP SMEAR Routine 07/31/2020 documented in this encounter Results * OUTSIDE PAP SMEAR (07/31/2020) Provider Abstract LAB documented in this encounter Visit Diagnoses Not on filedocumented in this encounter Care Teams Crew Caller Relationship Specialty Start Date End Date Sae Hawley MD [address] [place] [address] PCP - General Internal Medicine 03/17/23 documented as of this encounter
--- OUTSIDE RECORDS SUMMARY | 2025-04-29 21:45 | XMS_ITS ---
Author Name [facility] Organization Unknown Care Team Organization Name Specialty Phone Email Start Date End Da te [facility] Becky Primary Care 09/11/2022 02/23/[address] [facility] Andrey Orlando Primary Care 05/14/20222023
--- OUTSIDE RECORDS SUMMARY | 2025-04-29 21:45 | XMS_ITS | Encounter Summary ---
Author Organization [facility] Address [address] [place] [address] Care Team Providers Care Administrative Assistant Name Role Phone James Rea MD Primary Care Provider [facility] Andrey Tucker MD Primary Care Provider Sil Otoole MD Primary Care Provider [phone] Sae Hawley MD Primary Care Provider Encounter Details Date Type Department Care Team Description 10/17/2021 Telephone Adult Medicine [address] [address] James Rea MD Social History Tobacco Use [...] on filedocumented in this encounter Care Teams Administrative Assistant Relationship Specialty Start Date End Date James Rea MD PCP - General Internal Medicine 02/08/21 10/31/21 Andrey Orlando MD PCP - General Family Practice 11/01/21 03/11/23 Sil Pena MD [address] [place] [address] [id number] PCP - General Internal Medicine 03/12/23 03/16/23 Sae Hawley MD [address] [place] [address] [id number] PCP - General Internal Medicine 03/17/23 documented as of this encounter
--- OUTSIDE RECORDS SUMMARY | 2025-04-29 21:45 | XMS_ITS | Encounter Summary ---
Author Organization [facility] Address [address] [place] [address] Care Team Providers Care Crap Game Box Person Name Role Phone Sae Hawley MD Primary Care Provider Reason for Visit * Reason Onset Date Comments APPOINTMENT 04/17/2023 Encounter Details Date Type Department Care Team Description 04/17/2023 Telephone Adult Medicine [address] [address] Tarsha Cote PA-C [address] [place] [id number] APPOINTMENT Social History Tobacco Use Types Packs/Day Years Used Date Smoking Tobacco: Former Comments:use to smoke 1 cig per month Alcohol Use Standard Drinks/Week Comments Yes 0 (1 standard drink = 0.6 oz pur e alcohol) socially Sex Assigned at Date Recorded Not on file documented as of this encounter Miscellaneous Notes * Telephone Encounter - May Black M.A. - 04/17/2023 8:51 AM EDT Telephone Information: Work Phone Not on file. Pts phone disconnected or phone # changed. Letter mailed to Pt home re: appt with Tarsha Cote on 05/01/23 at 11:15A. documented in this encounter Plan of Treatment Not on file documented as of this encounter Visit Diagnoses Not on filedocumented in this encounter Care Teams Crap Game Box Person Relationship Specialty Start Date End Date Sae Hawley MD [address] [place] [id number] PCP - General Internal Medicine 03/17/23 documented as of this encounter
[2025-04-29 22:06] VITALS: BP 160/89; PULSE 71; RESP 16; TEMP 36.7; O2SAT 100
[2025-04-29 23:00] VITALS: BMI 38.9
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
[2025-04-30] MEDS: Flu Vacc TS2025-26(6mo up)/PF 0.5 ML SYRINGE IM (08:48)
[2025-04-30 09:25] VITALS: BP 121/77; PULSE 76; RESP 16; TEMP 37.1; O2SAT 100
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
[2025-04-30 19:33] VITALS: BP 134/61; PULSE 65; RESP 16; TEMP 37.1; O2SAT 98
[2025-05-01 08:00] VITALS: BP 131/79; PULSE 80; RESP 16; TEMP 36.6; O2SAT 97
[2025-05-01] MEDS: Milk of Magnesia 30 ML ORAL.SUSP PO (09:52)
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
[2025-05-01 20:27] VITALS: BP 125/65; PULSE 89; RESP 16; TEMP 37.1; O2SAT 98
[2025-05-02 08:00] VITALS: BP 133/89; PULSE 100; RESP 20; TEMP 37; O2SAT 99
[2025-05-02 08:01] LABS: Alanine Aminotransferase 25 U/L (0-31); Albumin Level 4.8 g/dL (3.5-5.0); Alkaline Phosphatase 74 U/L (39-117); Anion Gap 14 (12-20); Aspartate Amino Transferase 28 U/L (5-31); Blood Urea Nitrogen 9 mg/dL (9-16); Calcium 9.2 mg/dL (8.4-10.2); Carbon Dioxide 23 mmol/L (22-29); Chloride 101 mmol/L (96-108); Cholesterol 146 mg/dL (<200); Creatinine Clr Calc Pharmacy 127.6; Estimated Glomerular Filt Rate > 60; HDL Cholesterol 50 mg/dL (>40); Potassium 3.9 mmol/L (3.3-5.1); Sodium 134 mmol/L (135-145); Total Protein 7.8 g/dL (6.5-8.0); Triglycerides 60 mg/dL (<150)
[2025-05-02] MEDS: Artificial Tears 15 ML DROPS 2 DROP EYE-BOTH ×2 (11:14→21:11)
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
[2025-05-02 19:30] VITALS: BP 121/73; PULSE 105; RESP 18; TEMP 36.9; O2SAT 98
[2025-05-03 07:10] VITALS: BP 132/76; PULSE 91; RESP 16; TEMP 37; O2SAT 97
[2025-05-03] MEDS: Artificial Tears 15 ML DROPS 2 DROP EYE-BOTH ×2 (09:10→21:25)
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
[2025-05-03] MEDS: guaiFENesin LA 600 MG TAB.ER.12H 1200 MG PO ×2 (12:48→21:24)
[2025-05-03 20:00] VITALS: BP 146/96; PULSE 93; RESP 18; TEMP 36.8; O2SAT 99
[2025-05-03] MEDS: Milk of Magnesia 30 ML ORAL.SUSP PO (21:25)
[2025-05-04 08:00] VITALS: BP 114/65; PULSE 84; RESP 20; TEMP 36.4; O2SAT 98
[2025-05-04] MEDS: guaiFENesin LA 600 MG TAB.ER.12H 1200 MG PO (08:34)
[2025-05-04] MEDS: Artificial Tears 15 ML DROPS 2 DROP EYE-BOTH (09:00)
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
[2025-05-04 20:00] VITALS: BP 134/67; PULSE 84; RESP 16; TEMP 37; O2SAT 100
[2025-05-05 07:00] VITALS: BMI 39.2
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
[2025-05-05 20:58] VITALS: BP 118/77; PULSE 106; RESP 16; TEMP 37.1; O2SAT 96
[2025-05-06 07:48] VITALS: BP 100/59; PULSE 87; RESP 14; TEMP 36.3; O2SAT 96
[2025-05-06] MEDS: Milk of Magnesia 30 ML ORAL.SUSP PO (12:19)
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
[2025-05-06 20:00] VITALS: BP 123/83; PULSE 101; RESP 20; TEMP 36.7; O2SAT 100
[2025-05-06] MEDS: Artificial Tears 15 ML DROPS 2 DROP EYE-BOTH (20:49)
--- NOTE | 2025-05-07 05:55 | PC.NURSE ---
refused AM prilosec reporting she does not feel nauseous. education offered. continues to decline.
[2025-05-07 08:00] VITALS: BP 119/75; PULSE 81; RESP 16; TEMP 36.3; O2SAT 96
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
[2025-05-07 20:00] VITALS: BP 115/61; PULSE 84; RESP 18; TEMP 36.8; O2SAT 99
[2025-05-07] MEDS: Artificial Tears 15 ML DROPS 2 DROP EYE-BOTH (21:12)
[2025-05-08 08:00] VITALS: BP 133/88; PULSE 63; RESP 18; TEMP 36.4; O2SAT 98
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
[2025-05-08] MEDS: Artificial Tears 15 ML DROPS 2 DROP EYE-BOTH (12:47)
[2025-05-08 20:00] VITALS: BP 151/74; PULSE 79; RESP 16; TEMP 37.1; O2SAT 100
[2025-05-09 09:27] VITALS: BP 133/92; PULSE 69; TEMP 37; O2SAT 97
[2025-05-09] MEDS: Artificial Tears 15 ML DROPS 2 DROP EYE-BOTH (09:36)
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
[2025-05-09 20:00] VITALS: BP 108/67; PULSE 81; RESP 16; TEMP 36.9; O2SAT 98
[2025-05-10] MEDS: Artificial Tears 15 ML DROPS 2 DROP EYE-BOTH (09:05)
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
== END 2025-05-10 11:04 | disposition home or self-care (01) | DRG 753 ==
PROVIDERS: Registered Nurse; Admitting Provider Psychiatry & Neurology Psychiatry; Visit Provider Psychiatry & Neurology Psychiatry
DX: F31.9 Bipolar disorder, unspecified (principal); R45.851 Suicidal ideations; F43.10 Post-traumatic stress disorder, unspecified; Z23 Encounter for immunization; Z79.899 Other long term (current) drug therapy; Z87.891 Personal history of nicotine dependence
CPT/HCPCS: 36415; 80053; 80061; 83036; 90656

== ENCOUNTER → 2025-04-29 21:38 | Outpatient (BNV) | payer OTHER, SELFPAY | PROVIDERS: Admitting Provider Psychiatry & Neurology Psychiatry; Visit Provider Registered Nurse | DX: F31.9 Bipolar disorder, unspecified (principal); F43.10 Post-traumatic stress disorder, unspecified | CPT/HCPCS: 90792; 99232 ==

== ENCOUNTER → 2025-04-29 21:38 | Outpatient (BNV) | payer OTHER, SELFPAY | PROVIDERS: Admitting Provider Psychiatry & Neurology Psychiatry; Visit Provider Nurse Practitioner Family | DX: F31.9 Bipolar disorder, unspecified (principal) | CPT/HCPCS: 99221 ==